=== PATIENT | female | born 1940 | race Caucasian/White ===

== ENCOUNTER 2018-06-14 10:25 | Emergency (ER) | payer MEDICARE ==
[2018-06-14] MEDS ORDERED: IOHEXOL 350 MG/ML 100ML INFUS..BTL IV ONE (11:17)
[2018-06-14] MEDS ORDERED: SODIUM CHLORIDE 0.9% 1000ML 1,000 ML IV ONE (11:47)
[2018-06-14 12:27] LABS: BASOPHILS % (AUTO) 0.4 % (0.0-5.0); EOSINOPHILS % (AUTO) 1.1 % (0.0-8.0); HEMATOCRIT 35.1 % (36-48); LYMPHOCYTES % (AUTO) 12.4 % (21.0-51.0); MEAN CORPUSCULAR HEMOGLOBIN 30.6 pg (27.0-33.0); MEAN CORPUSCULAR VOLUME 92.6 fL (79-99); MONOCYTES % (AUTO) 9.1 % (3.0-13.0); PLATELET COUNT (AUTO) 173 K/uL (130-400); RED BLOOD CELL COUNT(AUTO) 3.79 MIL/uL (4.00-5.50); RED CELL DISTRIBUTION WIDTH 14.7 % (11.0-15.5); WHITE BLOOD COUNT (AUTO) 9.8 K/uL (4.8-10.8)
[2018-06-14 13:00] LABS: ALBUMIN 2.9 g/dL (3.5-5.0); BILIRUBIN,TOTAL 0.7 mg/dL (0.2-1.0); POTASSIUM 4.6 mmol/L (3.5-5.1); TOTAL PROTEIN, SERUM 6.4 g/dL (6.0-8.3)
[2018-06-14] MEDS ORDERED: CEFTRIAXONE SODIUM 1 GM ONE (14:24)
== END 2018-06-14 15:05 | disposition home or self-care (01) ==
LOC: EDH 10:25
DX: L03.312 Cellulitis of back [any part except buttock and flank] (principal); I10 Essential (primary) hypertension; E78.5 Hyperlipidemia, unspecified; E11.9 Type 2 diabetes mellitus without complications; Z88.8 Allergy status to other drugs, medicaments and biological substances; Z98.890 Other specified postprocedural states
CPT/HCPCS: 36415; 72193; 80053; 85025; 96374; 99285; J0696; J7030; Q9967

== ENCOUNTER → 2023-01-14 | Outpatient (CLI) | payer MEDICARE ==
[~2023-01-14] MED LIST: REGADENOSON 0.4 MG/5 ML PF SYG IVP ONE; REGADENOSON 0.4 MG/5 ML PF SYG IVP SCH
== END | disposition home or self-care (01) ==
LOC: SHCH 08:26
PROVIDERS: ATTEND Internal Medicine
DX: R94.39 Abnormal result of other cardiovascular function study (principal); R94.31 Abnormal electrocardiogram [ECG] [EKG]
CPT/HCPCS: 78452; 96374; 93017; J2785; A9500 ×2

== ENCOUNTER → 2023-01-28 | Outpatient (CLI) | payer MEDICARE | END | disposition home or self-care (01) | LOC: SHCH 09:32 | PROVIDERS: ATTEND Internal Medicine | DX: I34.81 Nonrheumatic mitral (valve) annulus calcification (principal); R94.31 Abnormal electrocardiogram [ECG] [EKG]; I10 Essential (primary) hypertension; E11.9 Type 2 diabetes mellitus without complications; E78.5 Hyperlipidemia, unspecified | CPT/HCPCS: 93306 ==

== ENCOUNTER → 2023-03-01 | Outpatient (CLI) | payer MEDICARE | END | disposition home or self-care (01) | LOC: SHCH 13:40 | PROVIDERS: ATTEND Internal Medicine | DX: I65.23 Occlusion and stenosis of bilateral carotid arteries (principal); R09.89 Other specified symptoms and signs involving the circulatory and respiratory systems | CPT/HCPCS: 93880 ==

== ENCOUNTER 2024-02-14 10:41 | Emergency (ER) | payer MEDICARE ==
[~2024-02-14] VITALS: Ht 149.9 cm; Wt 81.6 kg
[2024-02-14 11:40] LABS: APPEARANCE,URINE CLEAR (CLEAR); BILIRUBIN,URINE NEGATIVE (NEGATIVE); COLOR,URINE LIGHT-YELLOW (YELLOW); GLUCOSE, URINE (UA) NEGATIVE (NEGATIVE); KETONES,URINE NEGATIVE (NEGATIVE); LEUKOCYTE ESTERASE ,URINE 75 Leu/uL (NEGATIVE); NITRATE,URINE NEGATIVE (NEGATIVE); OCCULT BLOOD,URINE NEGATIVE (NEGATIVE); PROTEIN,URINE NEGATIVE (NEGATIVE); UROBILINOGEN,URINE 0.2 mg/dL (0.2-1.0)
[2024-02-14 11:43] LABS: ADD UA MICROSCOPIC YES
[2024-02-14 11:52] LABS: BACTERIA,URINE RARE /HPF (None Seen); MUCUS,URINE RARE LPF (None Seen); RBC,URINE 0-1 /HPF (0-1); SQUAMOUS EPITHELIAL CELL,UR RARE /HPF (0-2)
[2024-02-14] MEDS ORDERED: CEPH500T PO (11:58)
[2024-02-14] MEDS ORDERED: CYCL5TAB PO (11:58)
[2024-02-14 12:09] LABS: BASOPHILS # (AUTO) 0.05 K/uL (0.00-0.20); BASOPHILS % (AUTO) 0.9 % (0.0-5.0); EOSINOPHILS # (AUTO) 0.24 K/uL (0.00-0.70); EOSINOPHILS % (AUTO) 4.2 % (0.0-8.0); HEMATOCRIT 28.6 % (36-48); IMMATURE GRANULOCYTE ABSOLUTE 0.02 K/uL (0-1); LYMPHOCYTES # (AUTO) 1.8 K/uL (1.0-4.8); LYMPHOCYTES % (AUTO) 30.6 % (21.0-51.0); MEAN CORPUSCULAR HGB CONC 31.8 g/dL (32.0-36.0); MEAN CORPUSCULAR VOLUME 91.1 fL (79-99); MONOCYTES # (AUTO) 0.4 K/uL (0.1-1.0); MONOCYTES % (AUTO) 6.8 % (3.0-13.0); NEUTROPHILS # (AUTO) 3.3 K/uL (1.8-7.7); NEUTROPHILS % (AUTO) 57.1 % (40.0-77.0); PLATELET COUNT (AUTO) 192 K/uL (130-400); RED BLOOD CELL COUNT(AUTO) 3.14 MIL/uL (4.00-5.50); RED CELL DISTRIBUTION WIDTH 17.1 % (11.0-15.5); WHITE BLOOD COUNT (AUTO) 5.7 K/uL (4.8-10.8)
[2024-02-14] MEDS: CEFTRIAXONE 1G VIAL IVPB ONE (12:10)
[2024-02-14] MEDS: HYDROCODONE/ACETAMINOPHEN 5/325 MG TAB PO ONE (12:10)
[2024-02-14 12:21] LABS: CREATININE 1.3 mg/dL (0.5-1.0); POTASSIUM 5.1 mmol/L (3.5-5.1)
[2024-02-14 13:06] VITALS: BP 126/60; PULSE 68; RESP 18; O2SAT 98
== END 2024-02-14 13:07 | disposition home or self-care (01) ==
LOC: EDH 10:41
DX: N39.0 Urinary tract infection, site not specified (principal); G89.29 Other chronic pain; M54.9 Dorsalgia, unspecified; M62.838 Other muscle spasm; E11.9 Type 2 diabetes mellitus without complications; I10 Essential (primary) hypertension
CPT/HCPCS: 99283; 96374; 80048; 85025; 87088; 81001; 36415; J0696

== ENCOUNTER → 2024-03-15 | Outpatient (CLI) | payer MEDICARE ==
[~2024-03-15] MED LIST changes: +CEPH500T PO; +CYCL5TAB PO; -REGADENOSON 0.4 MG/5 ML PF SYG IVP ONE; -REGADENOSON 0.4 MG/5 ML PF SYG IVP SCH
== END | disposition home or self-care (01) ==
LOC: RAH 12:38
PROVIDERS: ATTEND Family Medicine
DX: R33.9 Retention of urine, unspecified (principal); E11.22 Type 2 diabetes mellitus with diabetic chronic kidney disease
CPT/HCPCS: 76857

== ENCOUNTER 2025-04-11 11:22 | Inpatient (IN) | payer MEDICARE ==
[~2025-04-11] VITALS: Ht 157.5 cm; Wt 83.3 kg
[~2025-04-11 11:22] MED LIST changes: -CYCL5TAB PO; +CYCL5TAB3 PO
[2025-04-11 12:16] LABS: APPEARANCE,URINE CLOUDY (CLEAR); GLUCOSE, URINE (UA) NEGATIVE (NEGATIVE); LEUKOCYTE ESTERASE ,URINE 500 Leu/uL (NEGATIVE); NITRATE,URINE NEGATIVE (NEGATIVE); OCCULT BLOOD,URINE NEGATIVE (NEGATIVE)
[2025-04-11 12:32] LABS: IMMATURE GRANULOCYTE ABSOLUTE 0.01 K/uL (0-1); NUCLEATED RED BLOOD CELLS 0.0 % (0.0-0.19); PLATELET COUNT (AUTO) 272 K/uL (130-400); RED BLOOD CELL COUNT(AUTO) 3.33 MIL/uL (4.00-5.50); RED CELL DISTRIBUTION WIDTH 15.7 % (11.0-15.5); WHITE BLOOD COUNT (AUTO) 6.2 K/uL (4.8-10.8)
[2025-04-11 12:36] LABS: NON-SQUAMOUS EPITHELIAL CELL 1 /HPF (0-2); SQUAMOUS EPITHELIAL CELL,UR MOD /HPF (0-2)
[2025-04-11 12:38] LABS: CREATININE 1.7 mg/dL (0.5-1.0); GLOMERULAR FILTR. RATE CALC 29.0 mL/min (>90); GLUCOSE,RANDOM 187.0 mg/dL (70-105); SODIUM SERUM 137.0 mmol/L (136-145); UREA NITROGEN, BLOOD 25.0 mg/dL (7-18)
[2025-04-11] MEDS ORDERED: PHARMACY COMMUNICATION MISC SCH (13:30)
[2025-04-11] MEDS: 0.9% NACL 500ML IV.SOLN 500 ML IV ONE (13:42)
--- NOTE | 2025-04-11 13:44 | HMCIMG ---
EXAM: CT Abdomen and Pelvis without Intravenous Contrast CLINICAL HISTORY: 84-year-old female with right flank pain TECHNIQUE: Axial computed tomography images of the abdomen and pelvis without intravenous contrast. Dose reduction technique was used including one or more of the following: automated exposure control, adjustment of mA and kV according to patient size, and/or iterative reconstruction. CONTRAST: None. COMPARISON: 06/14/2018 FINDINGS: LUNG BASES: Atelectasis. Tiny pulmonary micronodules, question inflammatory or infectious nodules. LIVER: Unremarkable. GALLBLADDER AND BILE DUCTS: Status post cholecystectomy with surgical clips. No ductal dilation. PANCREAS: Unremarkable. SPLEEN: Multiple splenic calcifications. ADRENAL GLANDS: Unremarkable. KIDNEYS, URETERS, AND BLADDER: Unremarkable. No hydronephrosis or nephrolithiasis. No ureteral or bladder calculi. Nonspecific bilateral perinephric fat stranding. STOMACH AND BOWEL: No obstruction. No wall thickening. No CT evidence of colitis. Left colon and sigmoid colon diverticulosis without diverticulitis. APPENDIX: Normal. PERITONEUM: No free fluid. No free air. LYMPH NODES: No lymphadenopathy. REPRODUCTIVE: Unremarkable as visualized. VASCULATURE: Atherosclerotic aortic and coronary arteries. Atherosclerotic aortoiliac bifurcation. No aortic aneurysm. ABDOMINAL WALL AND SOFT TISSUES: Anterior abdominal wall hernia containing mesenteric fat and some loops of small bowel without evidence of bowel obstruction. BONES: Fixation hardware in the lower lumbar spine. Ywqudhpr-[id number]-cbyarl degenerative changes in the lumbar spine. No fracture or suspicious osseous abnormality. IMPRESSION: 1. No acute intra-abdominal or pelvic abnormality related to right flank pain. 2. Anterior abdominal wall hernia containing mesenteric fat and some loops of small bowel without evidence of bowel obstruction. /[place]
--- NOTE | 2025-04-11 15:00 | ERN ---
General Chief Complaint: Flank Pain Stated Complaint: RT FLANK PAIN, UTI Time Seen by MD: 11:28 Time Seen by Midlevel: 11:28 Source: patient History of Present Illness Initial Comments 84-year-old female who presents to the emergency department due to right flank pain onset one week. Patient reports she was previously seen by PCP one week ago and had a negative UA. Urine was sent for culture and results from [facility] abnormal. Patient denies any hematuria, fevers, vomiting or further associated symptoms. PMHx anemia, cancer, DM, HTN, TIA, UTIs Allergies: Coded Allergies: No Allergy Information Available (Verified Allergy, Unknown, 01/13/23) baclofen (Unverified Allergy, Unknown, 04/11/25) ceftazidime (Unverified Allergy, Unknown, 04/11/25) colchicine (Unverified Allergy, Unknown, 04/11/25) gabapentin (Unverified Allergy, Unknown, 04/11/25) hydromorphone (Unverified Allergy, Unknown, 04/11/25) levofloxacin (Unverified Allergy, Unknown, 04/11/25) naproxen (Unverified Allergy, Unknown, 04/11/25) tetracycline (Unverified Allergy, Unknown, 04/11/25) Home Meds Active Scripts Cyclobenzaprine HCl (Cyclobenzaprine HCl) 5 Mg Tablet, 5 MG PO [id number] for back spasm/pain, #10 TAB 0 Refills Prov:AMANDA [employer] 02/14/24 Cephalexin (Cephalexin) 500 Mg Tablet, 500 MG PO BID for 7 Days, #14 TAB 0 Refills Prov:AMANDA [employer] 02/14/24 Past Medical History Past Medical History: Anemia, Cancer, Diabetes-Type II, Hypertension, TIA, UTI Medical History Other: SKIN CA Past Surgical History: Other Surgical History Other: BACK SX Social History Social History: Lives with family Female( History) History: Not Applicable ROS Dictation Constitutional: Negative for fever,chills, and weight loss Eyes: Negative for injury, pain,redness, and discharge ENT: Negative for injury,pain or swelling Cardiovascular: Negative for chest pain, palpitations, and edema Respiratory: Negative for shortness of breath, cough, and wheezing, Abdomen/GI: Positive for right flank pain Negative for nausea, vomiting, diarrhea, and constipation Back: Negative for injury and pain : Negative for painful urination, bleeding or discharge MS/Extremity: Negative for injury and deformity Skin: Negative for rash, and discoloration Neuro: Negative for headache, weakness, numbness, tingling, and seizure Psych: Negative for suicide ideation, homicidal ideation, and hallucinations Physical Exam Physical Exam Dictation General: awake, alert, no acute distress Head/Face: Normocephalic, atraumatic Eyes: PERRL, EOMI, normal conjunctiva ENT: oral cavity clear, oral mucosa moist Neck: Supple, normal range of motion Cardiovascular: RRR, normal S1/S2 Respiratory: CTAB, no respiratory distress Abdomen: Soft, non-tender, non-distended, no guarding or rebound. Skin: Warm, dry, normal turgor, no rash MS/Extremity: Pulses equal, no cyanosis, neurovascular intact, FROM Neuro: COAx4, GCS 15, strength 5/5, CN 2-12 intact, normal cerebellar exam, normal gait Psych: Normal behavior, mood, and affect normal Results Laboratory and Microbiology Lab and Micro Result Laboratory Tests Test 04/11/25 11:59 04/11/25 12:20 Urine Color LIGHT-YELLOW (YELLOW) Urine Appearance CLOUDY (CLEAR) H Urine pH 5.5 (5.0-8.0) Urine Specific [place] 1.007 (1.001-1.031) Urine Protein NEGATIVE mg/dL (NEGATIVE) Urine Glucose (UA) NEGATIVE mg/dL (NEGATIVE) Urine Ketones NEGATIVE mg/dL (NEGATIVE) Urine Occult Blood NEGATIVE (NEGATIVE) Urine Nitrate NEGATIVE (NEGATIVE) Urine Bilirubin NEGATIVE mg/dL (NEGATIVE) Urine Urobilinogen 0.2 mg/dL (0.2-1.0) Urine Leukocyte Esterase 500 Isac/uL (NEGATIVE) H Urine RBC 2-5 /HPF (0-1) H Urine WBC 6-10 /HPF (0-1) H Urine Squamous Epithelial Cells MOD /HPF (0-2) Urine Non-Squamous Epithelial Cells 1 /HPF (0-2) Urine Bacteria RARE /HPF (None Seen) White Blood Count 6.2 K/uL (4.8-10.8) Red Blood Count 3.33 MIL/uL (4.00-5.50) L Hemoglobin 8.5 g/dL (12.0-16.0) L Hematocrit 28.9 % (36-48) L Mean Corpuscular Volume 86.8 fL (79-99) Mean Corpuscular Hemoglobin 25.5 pg (27.0-33.0) L Mean Corpuscular Hemoglobin Concent 29.4 g/dL (32.0-36.0) L Red Cell Distribution Width 15.7 % (11.0-15.5) H Platelet Count 272 K/uL (130-400) Mean Platelet Volume 9.4 fL (7.5-10.5) Immature Granulocyte % (Auto) 0.2 % (0-1) Neutrophils (%) (Auto) 53.9 % (40.0-77.0) Lymphocytes (%) (Auto) 32.7 % (21.0-51.0) Monocytes (%) (Auto) 7.8 % (3.0-13.0) Eosinophils (%) (Auto) 4.1 % (0.0-8.0) Basophils (%) (Auto) 1.3 % (0.0-5.0) Neutrophils # (Auto) 3.3 K/uL (1.8-7.7) Lymphocytes # (Auto) 2.0 K/uL (1.0-4.8) Monocytes # (Auto) 0.5 K/uL (0.1-1.0) Eosinophils # (Auto) 0.25 K/uL (0.00-0.70) Basophils # (Auto) 0.08 K/uL (0.00-0.20) Absolute Immature Granulocyte (auto 0.01 K/uL (0-1) Nucleated Red Blood Cells 0.0 % (0.0-0.19) Red Blood Cell Morphology See comments Sodium Level 137 mmol/L (136-145) Potassium Level 4.4 mmol/L (3.5-5.1) Chloride Level 101 mmol/L (101-111) Carbon Dioxide Level 27 mmol/L (21-32) Blood Urea Nitrogen 25 mg/dL (7-18) H Creatinine 1.7 mg/dL (0.5-1.0) H Glomerular Filtration Rate Calc 29 mL/min (>90) Random Glucose 187 mg/dL (70-105) H Total Calcium 9.1 mg/dL (8.5-10.1) Labs Reviewed?: Yes EKG/XRAY/US/CT/MRI CT Scan Comment DICTATED BY: HOSSEIN OSPINA MD DATE: 04/11/25 1507 ELECTRONICALLY SIGNED BY: DATE: EXAM: CT Abdomen and Pelvis without Intravenous Contrast CLINICAL HISTORY: 84-year-old female with right flank pain TECHNIQUE: Axial computed tomography images of the abdomen and pelvis without intravenous contrast. Dose reduction technique was used including one or more of the following: automated exposure control, adjustment of mA and kV according to patient size, and/or iterative reconstruction. CONTRAST: None. COMPARISON: 06/14/2018 FINDINGS: LUNG BASES: Atelectasis. Tiny pulmonary micronodules, question inflammatory or infectious nodules. LIVER: Unremarkable. GALLBLADDER AND BILE DUCTS: Status post cholecystectomy with surgical clips. No ductal dilation. PANCREAS: Unremarkable. SPLEEN: Multiple splenic calcifications. ADRENAL GLANDS: Unremarkable. KIDNEYS, URETERS, AND BLADDER: Unremarkable. No hydronephrosis or nephrolithiasis. No ureteral or bladder calculi. Nonspecific bilateral perinephric fat stranding. STOMACH AND BOWEL: No obstruction. No wall thickening. No CT evidence of colitis. Left colon and sigmoid colon diverticulosis without diverticulitis. APPENDIX: Normal. PERITONEUM: No free fluid. No free air. LYMPH NODES: No lymphadenopathy. REPRODUCTIVE: Unremarkable as visualized. VASCULATURE: Atherosclerotic aortic and coronary arteries. Atherosclerotic aortoiliac bifurcation. No aortic aneurysm. ABDOMINAL WALL AND SOFT TISSUES: Anterior abdominal wall hernia containing mesenteric fat and some loops of small bowel without evidence of bowel obstruction. BONES: Fixation hardware in the lower lumbar spine. [id number] degenerative changes in the lumbar spine. No fracture or suspicious osseous abnormality. IMPRESSION: 1. No acute intra-abdominal or pelvic abnormality related to right flank pain. 2. Anterior abdominal wall hernia containing mesenteric fat and some loops of small bowel without evidence of bowel obstruction. /[place] DICTATED BY: HOSSEIN OSPINA MD DATE: 04/11/25 1443 [facility] MDM: Differential diagnosis: UTI, pyelonephritis, nephrolithiasis Rationale: 84-year-old female who presents to the emergency department due to right flank pain onset one week. Patient reports she was previously seen by PCP one week ago and had a negative UA. Urine was sent for culture and results from [facility] abnormal. Patient denies any hematuria, fevers, vomiting or further associated symptoms. PMHx anemia, cancer, DM, HTN, TIA, UTIs Per physical examination patient is in no acute distress, abdomen is soft nontender. Labs obtained indicating anemia with hemoglobin of 8.5. Chemistry shows creatinine of 1.7 and BUN 25 consistent with WILFREDO compared to previous labs. UA shows a urinary tract infection with 500 leukocyte esterase and 6-[address] abdomen and pelvis obtained showing no intra or acute abdominal or pelvic abnormalities, anterior abdominal wall hernia containing mesenteric fat and some small bowel without evidence of bowel obstruction. Patient was only administered 500 mL of IV fluids due to fluid retention and morphine in the ED. Consulted pharmacy for possible antibiotic due to patient's multiple allergies. Patient was educated on findings, diagnosis, decision for admission. Patient verbalized understanding and agrees with admission. Case discussed with [facility] who accepted admission. Previous outside records reviewed: Old ER visits. Risk of complication and/or morbidity or mortality of patient management: None Medications-Per medication reconciliation Need for hospitalization: Patient does meet criteria for hospitalization. Need for emergency major/minor surgery: No There are no social concerns with this patient. Prescription drug management Prescriptions will include symptomatic care Patient's prior external medical records from other ER visits were reviewed by me as indicated. Prior testing and results from previous visits were reviewed. Prior tests were taken into account with medical decision making and resource u tilization, independent historian/historians were used to obtain complete medical history. I independently interpreted the test that were performed, results were reviewed by me and considered findings on radiology if ordered. Medical management and examination interpretation discussions were had by me with other qualified healthcare professionals as indicated for the patient's ca re. ED Course Orders Procedure Category Date Status Time Cbc With Differential LAB 04/11/25 Complete 12:07 Basic Metabolic Panel LAB 04/11/25 Complete 12:07 Urinalysis LAB 04/11/25 Complete W/Microscopic 12:07 Ct Abdomen/Pelvis W/O CT 04/11/25 Resulted Contrast 12:07 Culture Urine CAROL 04/11/25 In Process 12:18 0.9% Nacl 500ml PHA 04/11/25 Complete Iv.Soln (Ns 500ml 13:30 Pharmacy PHA 04/11/25 Complete Communication 13:30 Morphine 2mg Syg PHA 04/11/25 Logged (Morphine 2mg Syg) 14:30 Vital Signs(Adult CPOE 04/11/25 Transmitted Hospitalist) 14:37 Nurse To Enter Home CPOE 04/11/25 Transmitted Medication 14:37 Admit Orders ADM 04/11/25 Transmitted 14:37 Current Medications Medications (Trade) Dose Ordered Sig/Ramirez Route PRN Reason Start Time Stop Time Status Last Admin Dose Admin Morphine Sulfate (morPHINE 2MG SYG) 2 mg ONCE ONCE IVP 04/11/25 14:30 04/11/25 14:31 UNV Pharmacy Profile Note (Pharmacy Communication) 1 each ONCE MISC 04/11/25 13:30 04/11/25 13:40 DC Sodium Chloride 500 ml @ 0 mls/hr ONCE ONCE IV 04/11/25 13:30 04/11/25 13:31 DC 04/11/25 13:42 Vital Signs Date Time Temp Pulse Resp B/P (MAP) Pulse Ox O2 Delivery O2 Flow Rate FiO2 04/11/25 13:27 97.0 62 18 152/55 98 Room Air* 0 21 04/11/25 11:25 97.9 77 16 168/83 98 Room Air* 0 21 04/11/25 11:25 97.9 77 16 168/63 98 Room Air 0 Critical Care Note Critical Time: 30 minutes Comments Total critical care time was 33 minutes. Excluding time for procedures. Management of critically ill patient with concern for acute decompensation. Management included interpretation of laboratory values and imaging, hemodynamics, time for consultation with consultants and admitting physician. DX & DISP Disposition: Inpatient Decision to Admit Date: Apr 11, 2025 Departure Impression: Primary Impression: UTI (urinary tract infection) Additional Impressions: WILFREDO (acute kidney injury), Anemia Condition: Stable Referrals: ABBE GRULLON MD (PCP) I performed the substantive portion of the visit. I have reviewed and personally made and approve the management plan that is documented in the notes by myself or the SARABJIT. I acknowledge full responsibility for the patient's management plan. GATO HERNANDEZ Apr 11, 2025 15:00
[2025-04-11 15:50] VITALS: BP 160/75; PULSE 65; RESP 18; TEMP 97.6
[2025-04-11 16:00] VITALS: O2SAT 99
--- NOTE | 2025-04-11 16:35 | NUR ---
DCP: HOME Pt currently lives with sps in their own home. Pt does not report insecurities with food, fci, and/or utilities. Pt does have a walker that she uses to ambulate. Pt does not have DME, home health, or provider services. PCP is Dr. Shyla Sandoval and uses [facility] for any RX needs. At [place] pt will return home and family can assist with transportation. Addendum: 04/11/25 at 1637 by MORGAN DAVENPORT SS Amended: Links added.
[2025-04-11] MEDS ORDERED: ARTIFICAL TEARS SOL 15 ML OP PRN (17:30)
[2025-04-11] MEDS ORDERED: LACTULOSE 20 GM/30 ML UDCUP PO PRN (17:30)
[2025-04-11] MEDS ORDERED: LOPERAMIDE HCL 2 MG CAP PO PRN (17:30)
[2025-04-11] MEDS ORDERED: NITROGLYCERIN 0.4 MG SL TAB SL PRN (17:30)
[2025-04-11] MEDS ORDERED: BENZOCAINE/MENTH/CETYLPYRD CL 1 EACH LOZENGE MM PRN (17:30)
[2025-04-11 20:00] VITALS: BP 121/65; PULSE 59; RESP 18; TEMP 98
[2025-04-11] MEDS: FAMOTIDINE 20MG VIAL IV SCH (21:31)
--- NOTE | 2025-04-11 22:18 | HP ---
[facility] HISTORY & PHYSICAL Date Patient Seen: Apr 11, 2025 Time of Visit: 22:18 Supervising Physician: Dr. Mcgrath Primary Care Physician: ABBE GRULLON MD (PCP) Outpatient Specialists: Inpatient Consults: nephrology PROBLEM LIST: Acute complicated cystitis, POA, + for beta hemolytic streptococcus, group B, per outpatient urine culture on 04/07/25 Acute kidney injury, GFR 29 Acute on chronic kidney disease, GFR 41on 02/14/2024 Anemia chronic disease Diabetes mellitus with hyperglycemia Uncontrolled hypertension History of Skin cancer to upper head History of TIA HPI: Mrs. Haywood is an 84-year-old female who presented to [facility] ED for evaluation of right flank pain onset one week. She reports that she was previously seen by PCP and urine one send off on 04/07/2025. She states the PCP reported the urine and urine cultures were negative but she continued with back discomfort which she associated with a urinary tract infection. She reports that she saw her urine from [facility] which read abnormal. The patient has the [facility] urine results/ findings which state "beta hemolytic streptococcus, group B. Penicillin and ampicillin are drug of choice for treatment". Labs were reviewed. Patient has a GFR of 29, BUN 25, creatinine 1.7, glucose 187, hemoglobin 8.5, hematocrit 28.9, RBC 3.3. UA is positive for leuk EST. CT abdomen and pelvis without contrast: 1. No acute intra-abdominal or pelvic abnormality related to right flank pain. 2. Anterior abdominal wall hernia containing mesenteric fat and some loops of small bowel without evidence of bowel obstruction. ED provider request patient be admitted with the diagnosis of UTI, WILFREDO, and anemia. I assessed the patient at bedside in 420. The patient appeared comfortable, breathing was even, unlabored, in no distress, and was conversive. I informed her of labs, diagnostics, and plan of care. She verbalized understanding and is in agreement with the plan. Plan and assessment are listed below. PAST MEDICAL HX: see above PAST SURGICAL HX: Back surgery, surgical removal of squamous cells from upper head SOCIAL HISTORY: No tobacco, ETOH, or illicit drug use Coded Allergies: No Allergy Information Available (Verified Allergy, Unknown, 01/13/23) baclofen (Unverified Allergy, Unknown, 04/11/25) ceftazidime (Unverified Allergy, Unknown, 04/11/25) colchicine (Unverified Allergy, Unknown, 04/11/25) gabapentin (Unverified Allergy, Unknown, 04/11/25) hydromorphone (Unverified Allergy, Unknown, 04/11/25) levofloxacin (Unverified Allergy, Unknown, 04/11/25) naproxen (Unverified Allergy, Unknown, 04/11/25) tetracycline (Unverified Allergy, Unknown, 04/11/25) REVIEW OF SYSTEMS: 12 point ROS reviewed with patient. Pertinent positives mentioned above. Otherwise negative. PHYSICAL EXAM: GENERAL: Alert, awake oriented x 3 HEENT: EOMI, Sclera non icteric, moist mucosa NECK: Supple, no JVD, trachea midline LUNGS: Clear breath sounds bilaterally. No wheezes HEART: Regular rate and rhythm. Normal S1 and S2, without murmurs ABD: Abdomen soft, nontender. Bowel sounds present EXT: No clubbing cyanosis or edema NEURO: Alert and oriented X3, follows commands Vital Signs (last 8hr) Date Time Temp Pulse Resp B/P (MAP) Pulse Ox O2 Delivery O2 Flow Rate FiO2 04/11/25 20:00 98.1 59 18 121/65 96 Room Air 21 04/11/25 16:00 99 Room Air* 0 21 04/11/25 15:50 97.5 65 18 160/75 98 Room Air 04/11/25 15:40 97.7 63 16 157/70 97 Room Air* 0 21 LABS: Hematology Labs: Test 04/11/25 12:20 Range/Units White Blood Count 6.2 4.8-10.8 K/uL Red Blood Count 3.33 L 4.00-5.50 MIL/uL Hemoglobin 8.5 L 12.0-16.0 g/dL Hematocrit 28.9 L 36-48 % Mean Corpuscular Volume 86.8 79-99 fL Mean Corpuscular Hemoglobin 25.5 L 27.0-33.0 pg Mean Corpuscular Hemoglobin Concent 29.4 L 32.0-36.0 g/dL Red Cell Distribution Width 15.7 H 11.0-15.5 % Platelet Count 272 130-400 K/uL Mean Platelet Volume 9.4 7.5-10.5 fL Immature Granulocyte % (Auto) 0.2 0-1 % Neutrophils (%) (Auto) 53.9 40.0-77.0 % Lymphocytes (%) (Auto) 32.7 21.0-51.0 % Monocytes (%) (Auto) 7.8 3.0-13.0 % Eosinophils (%) (Auto) 4.1 0.0-8.0 % Basophils (%) (Auto) 1.3 0.0-5.0 % Neutrophils # (Auto) 3.3 1.8-7.7 K/uL Lymphocytes # (Auto) 2.0 1.0-4.8 K/uL Monocytes # (Auto) 0.5 0.1-1.0 K/uL Eosinophils # (Auto) 0.25 0.00-0.70 K/uL Basophils # (Auto) 0.08 0.00-0.20 K/uL Absolute Immature Granulocyte (auto 0.01 0-1 K/uL Nucleated Red Blood Cells 0.0 0.0-0.19 % Red Blood Cell Morphology See comments Chemistry Labs: Test 04/11/25 12:20 Range/Units Sodium Level 137 136-145 mmol/L Potassium Level 4.4 3.5-5.1 mmol/L Chloride Level 101 101-111 mmol/L Carbon Dioxide Level 27 21-32 mmol/L Blood Urea Nitrogen 25 H 7-18 mg/dL Creatinine 1.7 H 0.5-1.0 mg/dL Glomerular Filtration Rate Calc 29 >90 mL/min Random Glucose 187 H 70-105 mg/dL Total Calcium 9.1 8.5-10.1 mg/dL DIAGNOSTICS / RADIOLOGY RESULTS: [ ] PLAN -Admit to medical floor. -Start Zosyn 3.375 IV q.8 hours per outpatient urine culture results. (Rocephin2 g IV given on arrival) -NS 75 mL/hour overnight, and discontinue at 7:00 a.m.. -Follow urine cultures. -Consult Nephrology for acute on chronic kidney injury. -Obtain renal sonogram. -Reconciled home medication: Hydrocodone/acetaminophen. -PRN medications for: Pain management, fever, hypertension, N/V, constipation. -Glucometer checks AC & HS needed with insulin regular sliding scale coverage as needed. -Blood pressure checks every 4 hours and as needed. -Reconcile home medications once available. - Monitor renal and liver function. -Monitor electrolytes and treat accordingly PRN -AM labs. -GI and DVT prophylaxis -Further plan/orders per hospitalization course. NEURO: Minimize central acting medications as possible. Maintain fall precautions, adequate lighting during the day PULMONARY: Supplemental 02 as needed. Maintain aspiration precautions at all times CARDIOVASCULAR: Follow hemodynamics. Vital signs per facility protocol GI & NUTRITION: Continue with nutritional support. Continue stool softeners and laxatives as needed. KIDNEYS & ELECTROLYTES: Strict monitoring of intake, output and overall fluid balance. Avoid nephrotoxic medications to the extent possible. Medications to be dosed according to renal function. Monitor electrolytes and replace as needed ENDOCRINE: Maintain blood glucose between 100-180 at all times. Hypoglycemia protocol in place INFECTIOUS DISEASE: Trend temperature, WBC and procalcitonin level Follow cultures, deescalate antibiotics as soon as possible. Panculture if new onset fever ONCOLOGY/HEMATOLOGY/COAGULATION: Monitor for s/s of bleeding Monitor hemoglobin, coagulation studies as needed SKIN: Pressure ulcer prevention per facility protocol Specialty mattress ORTHO/REHAB: Continue PT/OT Prophylaxis: Continue GI and DVT prophylaxis Code Status: Full Resuscitation Disposition: ESMER ORELLANA Apr 11, 2025 22:18
[2025-04-11] MEDS: 0.9%NACL 1000ML 1,000 ML IV SCH (22:41)
[2025-04-11 23:30] VITALS: BP 150/74; PULSE 59; RESP 18; TEMP 97.8
[2025-04-12] VITALS (8 sets, daily range): BP systolic 108–170; BP diastolic 60–70; PULSE 55–67; RESP 18–20; TEMP 97.7–98.7; O2SAT 96
[2025-04-12] MEDS ORDERED: HYDR-4060 PO (00:50)
[2025-04-12] MEDS: HYDROcodone/APAP 5/325 1 TAB TABLET PO PRN (01:13)
[2025-04-12] MEDS ORDERED: 0.9%NACL 50ML IV SCH (04:00)
[2025-04-12] MEDS: ZOSYN 3.375GM +NS 50ML IVPB SCH (07:58)
[2025-04-12] MEDS ORDERED: ZOSYN 3.375GM +NS 50ML IV SCH (08:00)
--- NOTE | 2025-04-12 09:04 | NUR ---
WOUND CONCERN INFORMED LALI EDWARDS THAT PATIENT HAD SMALL ULCER TO RIGHT INNER THIGH DRAINING PURULENT DRAINAGE. PATIENT ALSO HAS SKIN GRAFT TO RIGHT THIGH. NO NEW ORDERS TO CONSULT WOUND CARE. WILL CONTINUE TO KEEP CLEAN/ MONITOR WOUNDS.
[2025-04-12 09:48] LABS: NUCLEATED RED BLOOD CELLS 0.0 % (0.0-0.19); PLATELET COUNT (AUTO) 259.0 K/uL (130-400); RED BLOOD CELL COUNT(AUTO) 3.17 MIL/uL (4.00-5.50); RED CELL DISTRIBUTION WIDTH 15.7 % (11.0-15.5); WHITE BLOOD COUNT (AUTO) 5.6 K/uL (4.8-10.8)
[2025-04-12 09:57] LABS: CREATININE 1.8 mg/dL (0.5-1.0); GLOMERULAR FILTR. RATE CALC 27.0 mL/min (>90); GLUCOSE,RANDOM 188.0 mg/dL (70-105); SODIUM SERUM 140.0 mmol/L (136-145); UREA NITROGEN, BLOOD 24.0 mg/dL (7-18)
[2025-04-12 12:04] LABS: % IRON SATURATION 10.0 % (22-44); IRON, SERUM 31.0 mcg/dL (50-170)
--- NOTE | 2025-04-12 13:17 | HMCIMG ---
EXAM: US Retroperitoneum Complete, Renal. CLINICAL HISTORY: 84-year-old female with acute kidney insufficiency. TECHNIQUE: Real-time ultrasound of the retroperitoneum (complete) with image documentation. COMPARISON: None provided. FINDINGS: RIGHT KIDNEY: Measures approximately 9.6 x 4.8 x 4.7 cm. Normal contour. No evidence of hydronephrosis or focal mass. Cortical echogenicity is within normal limits. Corticomedullary differentiation is preserved. LEFT KIDNEY: Measures approximately 9.1 x 4.8 x 4.0 cm. Limited visualization of the superior pole due to overlying bowel gas. No hydronephrosis seen in the visualized portion. Cortical echogenicity appears within normal limits. No visible masses. BLADDER: Wall measures approximately 4 mm. Not fully distended, limiting evaluation. No intraluminal masses or stones identified. Urinary bladder is underdistended; recommend repeat evaluation with better filling if clinically indicated. Kidneys are normal in size and shape for age, without sonographic evidence of obstruction. Limited view of the superior pole of the left kidney. Findings do not suggest hydronephrosis or acute obstruction. IMPRESSION: 1. No hydronephrosis or acute obstruction. 2. Limited visualization of the superior pole of the left kidney due to overlying bowel gas. 3. Underdistended urinary bladder; recommend repeat evaluation with better filling if clinically indicated. /[place]
--- NOTE | 2025-04-12 14:08 | PN ---
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 labs Dispo: Home INTERVAL HISTORY: Mrs. Haywood is an 84-year-old female who presented to [facility] [place] ED for evaluation of right flank pain onset one week. She reports that she was previously seen by PCP and urine one send off on 04/07/2025. She states the PCP reported the urine and urine cultures were negative but she continued with back discomfort which she associated with a urinary tract infection. She reports that she saw her urine from [facility] which read abnormal. The patient has the [facility] urine results/ findings which state "beta hemolytic streptococcus, group B. Penicillin and ampicillin are drug of choice for treatment". Labs were reviewed. Patient has a GFR of 29, BUN 25, creatinine 1.7, glucose 187, hemoglobin 8.5, hematocrit 28.9, RBC 3.3. UA is positive for leuk EST. CT abdomen and pelvis without contrast: 1. No acute intra-abdominal or pelvic abnormality related to right flank pain. 2. Anterior abdominal wall hernia containing mesenteric fat and some loops of small bowel without evidence of bowel obstruction. ED provider request patient be admitted with the diagnosis of UTI, WILFREDO, and anemia. assessed the patient at bedside in 420. The patient appeared comfortable, breathing was even, unlabored, in no distress, and was conversive. I informed her of labs, diagnostics, and plan of care. She verbalized understanding and is in agreement with the plan. 04/12 - patient is seen up in bed appears to be weak, deconditioned. Patient does not appear to be in any acute distress. Patient remains on room air denies chest discomfort, chest pain, or dyspnea with exertion. No acute changes reported overnight. Patient continues with renal dysfunction. We will continue IV fluids for now. Patient is found to have iron-deficiency anemia therefore we will replace with IV iron supplementation for now. We will continue current treatment plan for now. Vital signs are stable. Labs are within normal limits. We will plan to DC home in the next 24-48 hours. REVIEW OF SYSTEMS: 12 point ROS reviewed with patient. Pertinent positives mentioned above. Otherwise negative. PHYSICAL EXAM: GENERAL: Alert, awake oriented x 3 HEENT: EOMI, Sclera non icteric, moist mucosa NECK: Supple, no JVD, trachea midline LUNGS: Clear breath sounds bilaterally. No wheezes HEART: Regular rate and rhythm. Normal S1 and S2, without murmurs ABD: Abdomen soft, nontender. Bowel sounds present EXT: No clubbing cyanosis or edema NEURO: Alert and oriented X3, follows commands Vital Signs (last 8hr) Date Time Temp Pulse Resp B/P (MAP) Pulse Ox O2 Delivery O2 Flow Rate FiO2 04/12/25 12:00 98.6 67 20 148/66 99 Room Air 04/12/25 08:03 98.6 56 20 125/60 96 Room Air 04/12/25 08:00 96 Room Air* 0 21 04/12/25 07:52 98.6 56 20 125/60 96 Room Air LABS: Hematology Labs: Test 04/12/25 09:39 04/11/25 12:20 Range/Units White Blood Count 5.6 4.8-10.8 K/uL Red Blood Count 3.17 L 4.00-5.50 MIL/uL Hemoglobin 8.1 L 12.0-16.0 g/dL Hematocrit 27.3 L 36-48 % Mean Corpuscular Volume 86.1 79-99 fL Mean Corpuscular Hemoglobin 25.6 L 27.0-33.0 pg Mean Corpuscular Hemoglobin Concent 29.7 L 32.0-36.0 g/dL Red Cell Distribution Width 15.7 H 11.0-15.5 % Platelet Count 259 130-400 K/uL Mean Platelet Volume 9.6 7.5-10.5 fL Nucleated Red Blood Cells 0.0 0.0-0.19 % Immature Granulocyte % (Auto) 0.2 0-1 % Neutrophils (%) (Auto) 53.9 40.0-77.0 % Lymphocytes (%) (Auto) 32.7 21.0-51.0 % Monocytes (%) (Auto) 7.8 3.0-13.0 % Eosinophils (%) (Auto) 4.1 0.0-8.0 % Basophils (%) (Auto) 1.3 0.0-5.0 % Neutrophils # (Auto) 3.3 1.8-7.7 K/uL Lymphocytes # (Auto) 2.0 1.0-4.8 K/uL Monocytes # (Auto) 0.5 0.1-1.0 K/uL Eosinophils # (Auto) 0.25 0.00-0.70 K/uL Basophils # (Auto) 0.08 0.00-0.20 K/uL Absolute Immature Granulocyte (auto 0.01 0-1 K/uL Red Blood Cell Morphology See comments Chemistry Labs: Test 04/12/25 09:39 Range/Units Sodium Level 140 136-145 mmol/L Potassium Level 4.3 3.5-5.1 mmol/L Chloride Level 103 101-111 mmol/L Carbon Dioxide Level 26 21-32 mmol/L Blood Urea Nitrogen 24 H 7-18 mg/dL Creatinine 1.8 H 0.5-1.0 mg/dL Glomerular Filtration Rate Calc 27 >90 mL/min Random Glucose 188 H 70-105 mg/dL Total Calcium 8.7 8.5-10.1 mg/dL Iron Level 31 L 50-170 mcg/dL Total Iron Binding Capacity 309 250-450 mcg/dL Percent Iron Saturation 10.0 L 22-44 % DIAGNOSTICS / RADIOLOGY RESULTS: [ ] PLAN -Admit to medical floor. -Start Zosyn 3.375 IV q.8 hours per outpatient urine culture results. (Rocephin2 g IV given on arrival) -NS 75 mL/hour overnight, and discontinue at 7:00 a.m.. -Follow urine cultures. -Consult Nephrology for acute on chronic kidney injury. -Obtain renal sonogram. -Reconciled home medication: Hydrocodone/acetaminophen. -PRN medications for: Pain management, fever, hypertension, N/V, constipation. -Glucometer checks AC & HS needed with insulin regular sliding scale coverage as needed. -Blood pressure checks every 4 hours and as needed. -Reconcile home medications once available. - Monitor renal and liver function. -Monitor electrolytes and treat accordingly PRN -AM labs. -GI and DVT prophylaxis -Further plan/orders per hospitalization course. NEURO: Minimize central acting medications as possible. Maintain fall precautions, adequate lighting during the day PULMONARY: Supplemental 02 as needed. Maintain aspiration precautions at all times CARDIOVASCULAR: Follow hemodynamics. Vital signs per facility protocol GI & NUTRITION: Continue with nutritional support. Continue stool softeners and laxatives as needed. KIDNEYS & ELECTROLYTES: Strict monitoring of intake, output and overall fluid balance. Avoid nephrotoxic medications to the extent possible. Medications to be dosed according to renal function. Monitor electrolytes and replace as needed ENDOCRINE: Maintain blood glucose between 100-180 at all times. Hypoglycemia protocol in place INFECTIOUS DISEASE: Trend temperature, WBC and procalcitonin level Follow cultures, deescalate antibiotics as soon as possible. Panculture if new onset fever ONCOLOGY/HEMATOLOGY/COAGULATION: Monitor for s/s of bleeding Monitor hemoglobin, coagulation studies as needed SKIN: Pressure ulcer prevention per facility protocol Specialty mattress ORTHO/REHAB: Continue PT/OT Prophylaxis: Continue GI and DVT prophylaxis Code Status: Full Resuscitation Disposition: Home in 24-48 hours ATTESTATION BY PHYSICIAN I have seen and examined the patient. I reviewed the documentation, medical decision making, and treatment plan as noted by the mid-level provider above. I agree with the findings and plan of care. Denise Mcgrath MD,LALI N TONY Apr 12, 2025 14:08
[2025-04-12] MEDS: 0.9%NACL 1000ML 1,000 ML IV SCH (16:00)
[2025-04-12 20:08] LABS: APPEARANCE,URINE CLEAR (CLEAR); GLUCOSE, URINE (UA) NEGATIVE (NEGATIVE); LEUKOCYTE ESTERASE ,URINE NEGATIVE Leu/uL (NEGATIVE); NITRATE,URINE NEGATIVE (NEGATIVE); OCCULT BLOOD,URINE NEGATIVE (NEGATIVE)
[2025-04-12 20:09] LABS: ADD UA MICROSCOPIC NO
[2025-04-13 04:25] VITALS: BP 123/53; PULSE 58; RESP 17; TEMP 97.6
[2025-04-13 05:32] LABS: NUCLEATED RED BLOOD CELLS 0.0 % (0.0-0.19); PLATELET COUNT (AUTO) 257.0 K/uL (130-400); RED BLOOD CELL COUNT(AUTO) 3.04 MIL/uL (4.00-5.50); RED CELL DISTRIBUTION WIDTH 15.9 % (11.0-15.5); WHITE BLOOD COUNT (AUTO) 7.4 K/uL (4.8-10.8)
[2025-04-13 06:02] LABS: ASPARTATE AMINOTRANSFERASE 14.0 U/L (10-37); CREATININE 1.9 mg/dL (0.5-1.0); GLOMERULAR FILTR. RATE CALC 26.0 mL/min (>90); GLUCOSE,RANDOM 98.0 mg/dL (70-105); PHOSPHORUS 4.5 mg/dL (2.5-4.9); SODIUM SERUM 141.0 mmol/L (136-145); TOTAL PROTEIN, SERUM 6.0 g/dL (6.0-8.3); UREA NITROGEN, BLOOD 26.0 mg/dL (7-18)
--- NOTE | 2025-04-13 07:54 | CONS ---
NEPHROLOGY CONSULTATION REASON FOR CONSULTATION: Renal failure. HISTORY OF PRESENT ILLNESS: This patient is an 84-year-old who was admitted with right flank pain. The patient also has underlying back discomfort. The patient has abdominal hernia detected, found to have evaluated BUN and creatinine. The patient does have anemia. No other associated findings. No other aggravating or relieving factors. The patient has been possible UTI. All the other systemic review is unchanged. The patient is weak. The patient has known underlying diabetes, underlying hypertension, history of skin cancer, history of TIAs and the patient has Streptococcal in the urine culture. PAST MEDICAL HISTORY: Review of past medical history as above, diabetes, hypertension, skin cancer, TIA, anemia, and multiple others as above. PAST SURGICAL HISTORY: Back surgery and skin cancer removal. SOCIAL HISTORY: No smoking, alcohol, or drug abuse. ALLERGIES TO MEDICATIONS: SHE IS ALLERGIC TO BACLOFEN, CEFTAZIDIME, COLCHICINE, GABAPENTIN, HYDROMORPHONE, LEVAQUIN, NAPROXEN, TETRACYCLINE. FAMILY HISTORY: Unremarkable for present contacts. REVIEW OF SYSTEMS: CONSTITUTIONAL: Has been weak. No previous fever. No chills or rigor. HEENT: With no headache. No ulcer, sore throat, or difficulty swallowing. No new vision complaints. RESPIRATORY: With no cough, expectoration, hemoptysis, or pleuritic pain. CARDIOVASCULAR: No orthopnea or PND. GASTROINTESTINAL: Negative for nausea, vomiting or diarrhea. GENITOURINARY: Negative for dysuria or hematuria. DERMATOLOGIC: No rashes, pruritus, or skin lesion. ENDOCRINE: No polyuria, polydipsia, or polyphagia. PSYCHIATRIC: Negative for anxiety, depression, or hallucinations. NEUROLOGIC: No seizures or syncope. PHYSICAL EXAMINATION: GENERAL: Pale, no other distress. VITAL SIGNS: Blood pressure is 121/65, pulse 60, respiratory rate is 18, afebrile. HEENT: Head is atraumatic, normocephalic. Pupils are round and active. Sclerae are anicteric. Conjunctivae are not pale. Oral mucosa is not dry. NECK: Without masses or bruits. Neck has no bruits. CHEST: Shows equal thoracic percussion note being resonant in all areas. CARDIAC: Regular rhythm. No rub, no S3 or S4, no parasternal heave. ABDOMEN: No guarding, tenderness. Bowel sounds present. No free fluid. EXTREMITIES: No edema and no cyanosis or clubbing. BACK: No tenderness or back deformities. SKIN: No other petechiae rashes noted on inspection or palpation. LYMPHATIC: No lymph node swelling in neck or axillary area. LABORATORY DATA: Labs have been reviewed. Low hemoglobin 8.5, hematocrit is 28. The patient has a creatinine elevated up to 1.7, BUN of 25. Old records reviewed. The patient's urine culture is coming out positive for streptococcus. Microbiology data reviewed. IMAGING STUDIES: Personally reviewed. Renal ultrasound has shown this is a medical renal disease. No hydronephrosis. Nondistended bladder. Old records have been reviewed in detail, and I have reviewed and discussed with other team members. PROBLEMS: * Acute on chronic renal failure. * The patient has anemia. * Underlying diabetes. * The patient has underlying complicated UTI, underlying hypertension uncontrolled, history of skin cancer and TIA. RECOMMENDATIONS: Will be, * The patient has been admitted. * IV antibiotic and adjusted dose. * Gentle hydration. * The patient will get urine culture and urinalysis. * Urine electrolytes and osmolality. * One Nephro-Akshat daily. * Iron studies and ferritin. * Iron replacement as needed. * Monitor hemoglobin and hematocrit. * Monitor longitudinally kidney function. * Intake, output, weight to be monitored. * Please avoid contrast, nonsteroidal drug, and nephrotoxics. Medicine to be adjusted. Hypotension should be avoided and overall condition is critical and guarded. I have discussed with other team physician. Old records, previous records, imaging studies personally reviewed. Labs have been reviewed. Followup labs have been ordered. Overall, condition remained guarded. The patient was seen several times today. * IV Dilaudid 0.5 mg q.6 h. can be used for pain and I have discussed with the primary team and other team members. Thank you for this patient. TID: [id number] RECEIPT: [id number]
[2025-04-13 08:00] VITALS: BP 140/64; PULSE 66; RESP 17; TEMP 97.3; O2SAT 97
[2025-04-13] MEDS: levoTHYROxine VIAL 100MCG IV SCH (09:07)
[2025-04-13] MEDS: Vitamin B Complex/Vit C/Folic Acid PO SCH (09:08)
--- NOTE | 2025-04-13 09:46 | PN ---
NEPHROLOGY PROGRESS NOTE Date/Time Patient Seen: Apr 13, 2025 SUBJECTIVE: This is an 84-year-old female chronic kidney disease, anemia, diabetes mellitus type 2, hypertension, skin cancer, history of TIA. She presented to [facility] for evaluation of right flank pain onset one week. Urine culture was positive for strep agalactiae group B She continues on antibiotics She was found to have elevated BUN/creatinine. Renal function remains elevated Electrolytes are stable. Renal ultrasound was noted Hemoglobin was noted, she has been started on IV iron She was seen in the medical floor, in no acute distress No family at the bedside REVIEW OF SYSTEMS: GENERAL: Negative for any nausea, vomiting, fevers, chills, or weight loss. NEUROLOGIC: Negative for any blurry vision, blind spots, double vision, facial asymmetry, dysphagia, dysarthria, hemiparesis, hemisensory deficits, vertigo, a taxia. HEENT: Negative for any head trauma, neck trauma, neck stiffness, photophobia, phonophobia, sinusitis, rhinitis. CARDIAC: Negative for any chest pain, dyspnea on exertion, paroxysmal nocturnal dyspnea, peripheral edema. PULMONARY: Negative for any shortness of breath, wheezing, COPD, or TB exposure. GASTROINTESTINAL: Negative for any abdominal pain, nausea, vomiting, bright red blood per rectum, melena. GENITOURINARY: Negative for any dysuria, hematuria, incontinence. INTEGUMENTARY: Negative for any rashes, cuts, insect bites. RHEUMATOLOGIC: Negative for any joint pains, photosensitive rashes, history of vasculitis or kidney problems. HEMATOLOGIC: Negative for any abnormal bruising, frequent infections or bleedi ng. Vital Signs (last 8hr) Date Time Temp Pulse Resp B/P (MAP) Pulse Ox O2 Delivery O2 Flow Rate FiO2 04/13/25 08:00 97.3 66 17 140/64 97 Room Air 04/13/25 04:25 97.5 58 17 123/53 98 Room Air 21 PHYSICAL EXAM: GENERAL: Alert and oriented x 3. No acute distress. Well-nourished. EYES: EOMI. Anicteric. HENT: Moist mucous membranes. No scleral icterus. No cervical lymphadenopathy. LUNGS: Clear to auscultation bilaterally. No accessory muscle use. CARDIOVASCULAR: Regular rate and rhythm. No murmur. No JVD. ABDOMEN: Soft, non-tender and non-distended. No palpable masses. EXTREMITIES: No edema. Non-tender. SKIN: No rashes or lesions. Warm. NEUROLOGIC: No focal neurological deficits. CN II-XII grossly intact, but not individually tested. PSYCHIATRIC: Cooperative. Appropriate mood and affect. Current Medications Medications (Trade) Dose Ordered Sig/Ramirez Route PRN Reason Start Time Stop Time Status Last Admin Dose Admin Acetaminophen (TYLenol 325MG TAB) 650 mg Q4H PRN PO MILD PAIN (1-3) 04/11/25 17:30 05/11/25 17:29 Acetaminophen (TYLenol 325MG TAB) 650 mg Q6H PRN PO TEMPERATURE GREATER THAN 101.5 04/11/25 17:30 05/11/25 17:29 Acetaminophen/ Hydrocodone Bitart (NORco 5/325MG) 1 tab Q6H PRN PO PAIN6-10 04/12/25 01:00 04/17/25 00:59 04/13/25 04:34 1 TAB Alprazolam (XANax 0.5MG) 0.5 mg Q6H PRN PO ANXIETY/AGITATION 04/11/25 17:30 05/11/25 17:29 Artificial Tears (Artificial Tears) 1 DROP Q2H PRN OP DRY EYES 04/11/25 17:30 05/11/25 17:29 Benzocaine (Cepacol Sore Throat Lozenge) 1 each Q2H PRN MM SORE THROAT 04/11/25 17:30 05/11/25 17:29 Ceftriaxone Sodium (Rocephin 2gm Inj) 2 gm Q24H IVPB 04/11/25 22:00 04/11/25 22:44 DC 04/11/25 22:41 2 GM Docusate Sodium (COLace 100MG CAP) 100 mg BID PRN PO CONSTIPATION 04/11/25 17:30 05/11/25 17:29 Famotidine (Pepcid 20mg Vial) 20 mg BID IV 04/11/25 21:00 04/12/25 06:28 DC 04/11/25 21:31 20 MG Famotidine (Pepcid 20mg Vial) 20 mg Q48H IV 04/13/25 21:00 05/11/25 20:59 Guaifenesin (RobiTUSSin SUGAR-FREE 100 MG/ 5 ML UDCUP) 200 mg Q4H PRN PO COUGH 04/11/25 17:30 05/11/25 17:29 Iron Sucrose (VenoFER) 200 mg DAILY08 IV 04/12/25 14:30 04/14/25 14:29 04/13/25 09:07 200 MG Lactulose (Constulose 20gm/ 30ml Udcup) 20 gm BID PRN PO CONSTIPATION 04/11/25 17:30 05/11/25 17:29 Levothyroxine Sodium (SYNTHroid VIAL 100MCG) 100 mcg SYN IV 04/13/25 08:30 05/13/25 08:29 04/13/25 09:07 100 MCG Loperamide HCl (Imodium) 2 mg Q6H PRN PO AFTER EACH LOOSE STOOL 04/11/25 17:30 05/11/25 17:29 Nitroglycerin (Nitrostat) 0.4 mg PROTOCOL PRN SL CHEST PAIN 04/11/25 17:30 05/11/25 17:29 Ondansetron HCl (zoFRAN 4MG INJ) 4 mg Q6H PRN IV NAUSEA/VOMITING 04/11/25 17:30 05/11/25 17:29 Pharmacy Profile Note (Pharmacy Communication) 1 each ONCE MISC 04/11/25 13:30 04/11/25 13:40 DC Piperacillin Sod/ Tazobactam Sod (Zosyn 3.375gm+NS 50ml) 3.375 gm Q12H IVPB 04/12/25 05:00 04/22/25 04:59 04/13/25 04:33 3.375 GM Piperacillin Sod/ Tazobactam Sod (Zosyn 3.375gm+NS 50ml) 3.375 gm Q8H IV 04/12/25 08:00 04/12/25 06:27 DC Polyethylene Glycol (MIRalax 3350 17 GM POWD.PACK) 17 gm DAILY PRN PO CONSTIPATION 04/11/25 17:30 05/11/25 17:29 Sodium Chloride 1,000 ml @ 75 mls/hr [id number] IV 04/11/25 22:00 04/12/25 08:53 DC 04/11/25 22:41 75 MLS/HR Sodium Chloride 1,000 ml @ 100 mls/hr Q10H IV 04/12/25 16:00 8/28/25 15:59 04/12/25 16:00 100 MLS/HR Sodium Chloride (NS 50ml) 50 ml AD IV 04/12/25 04:00 04/12/25 06:27 DC Vitamin B Complex/ Vit C/Folic Acid (Nephrovite Tablet) 1 cap DAILY PO 04/13/25 09:00 05/13/25 08:59 04/13/25 09:08 1 CAP LABORATORY: [ ] Hematology Labs: Test 04/13/25 04:10 04/11/25 12:20 Range/Units White Blood Count 7.4 # 4.8-10.8 K/uL Red Blood Count 3.04 L 4.00-5.50 MIL/uL Hemoglobin 7.8 L 12.0-16.0 g/dL Hematocrit 26.6 L 36-48 % Mean Corpuscular Volume 87.5 79-99 fL Mean Corpuscular Hemoglobin 25.7 L 27.0-33.0 pg Mean Corpuscular Hemoglobin Concent 29.3 L 32.0-36.0 g/dL Red Cell Distribution Width 15.9 H 11.0-15.5 % Platelet Count 257 130-400 K/uL Mean Platelet Volume 9.8 7.5-10.5 fL Nucleated Red Blood Cells 0.0 0.0-0.19 % Immature Granulocyte % (Auto) 0.2 0-1 % Neutrophils (%) (Auto) 53.9 40.0-77.0 % Lymphocytes (%) (Auto) 32.7 21.0-51.0 % Monocytes (%) (Auto) 7.8 3.0-13.0 % Eosinophils (%) (Auto) 4.1 0.0-8.0 % Basophils (%) (Auto) 1.3 0.0-5.0 % Neutrophils # (Auto) 3.3 1.8-7.7 K/uL Lymphocytes # (Auto) 2.0 1.0-4.8 K/uL Monocytes # (Auto) 0.5 0.1-1.0 K/uL Eosinophils # (Auto) 0.25 0.00-0.70 K/uL Basophils # (Auto) 0.08 0.00-0.20 K/uL Absolute Immature Granulocyte (auto 0.01 0-1 K/uL Red Blood Cell Morphology See comments Chemistry Labs: Test 04/13/25 04:10 04/12/25 09:39 Range/Units Sodium Level 141 136-145 mmol/L Potassium Level 4.3 3.5-5.1 mmol/L Chloride Level 105 101-111 mmol/L Carbon Dioxide Level 27 21-32 mmol/L Blood Urea Nitrogen 26 H 7-18 mg/dL Creatinine 1.9 H 0.5-1.0 mg/dL Glomerular Filtration Rate Calc 26 >90 mL/min Random Glucose 98 70-105 mg/dL Uric Acid 7.5 H 2.6-7.2 mg/dL Total Calcium 8.4 L 8.5-10.1 mg/dL Phosphorus Level 4.5 2.5-4.9 mg/dL Magnesium Level 1.70 L 1.80-2.40 mg/dL Total Bilirubin 0.3 0.2-1.0 mg/dL Aspartate Amino Transf (AST/SGOT) 14 10-37 U/L Alanine Aminotransferase (ALT/SGPT) 14 12-78 U/L Alkaline Phosphatase 63 50-136 U/L Total Protein 6.0 6.0-8.3 g/dL Albumin 3.1 L 3.5-5.0 g/dL Thyroid Stimulating Hormone (TSH) 144.05 H 0.36-3.74 uIU/mL Free Thyroxine (T4) Direct 0.14 L 0.76-1.46 ng/dL Free Triiodothyronine (T3) pg/mL 1.19 L 2.18-3.98 pg/mL Iron Level 31 L 50-170 mcg/dL Total Iron Binding Capacity 309 250-450 mcg/dL Percent Iron Saturation 10.0 L 22-44 % DIAGNOSTICS / RADIOLOGY: [place] [address] IMAGING REPORT Signed PATIENT: DWAIN LINDSAY MR#: [id number] : 1940 SEX: F AGE: 84 LOCATION: [facility] ORDER 44 STATUS: ADM IN REPORT#: [id number] SERVICE 41 REASON: WILFREDO ORDERING PHYSICIAN: ESMER WELLS PROCEDURE: RENAL - US RENAL SONOGRAM EXAM: US Retroperitoneum Complete, Renal. CLINICAL HISTORY: 84-year-old female with acute kidney insufficiency. TECHNIQUE: Real-time ultrasound of the retroperitoneum (complete) with image documentation. COMPARISON: None provided. FINDINGS: RIGHT KIDNEY: Measures approximately 9.6 x 4.8 x 4.7 cm. Normal contour. No evidence of hydronephrosis or focal mass. Cortical echogenicity is within normal limits. Corticomedullary differentiation is preserved. LEFT KIDNEY: Measures approximately 9.1 x 4.8 x 4.0 cm. Limited visualization of the superior pole due to overlying bowel gas. No hydronephrosis seen in the visualized portion. Cortical echogenicity appears within normal limits. No visible masses. BLADDER: Wall measures approximately 4 mm. Not fully distended, limiting evaluation. No intraluminal masses or stones identified. Urinary bladder is underdistended; recommend repeat evaluation with better filling if clinically indicated. Kidneys are normal in size and shape for age, without sonographic evidence of obstruction. Limited view of the superior pole of the left kidney. Findings do not suggest hydronephrosis or acute obstruction. IMPRESSION: 1. No hydronephrosis or acute obstruction. 2. Limited visualization of the superior pole of the left kidney due to overlying bowel gas. 3. Underdistended urinary bladder; recommend repeat evaluation with better filling if clinically indicated. /[place] DICTATED BY: HOSSEIN OSPINA MD DATE: 04/12/251415 ELECTRONICALLY SIGNED BY: HOSSEIN OSPINA MD DATE: 04/12/251415 PATIENT: DWAIN LINDSAY MR#: [id number] : 1940 SEX: F AGE: 84 LOCATION[facility] ORDER 120 STATUS: REG ER REPORT#: [id number] SERVICE 06 REASON: R flank pain ORDERING PHYSICIAN: ADORE HERNANDEZ PROCEDURE: ABD PEL WO - CT ABDOMEN/PELVIS W/O CONTRAST ADDENDUM REPORT ADDENDUM: Correction: Results were shared by telephone at 3:01 pm on 04-11-25 and acknowledged by Adore Pavon /[place] ADDENDUM: Results were shared by telephone at 3:01 pm on 04-10-25 and acknowledged by Adore Pavon /[place] EXAM: CT Abdomen and Pelvis without Intravenous Contrast CLINICAL HISTORY: 84-year-old female with right flank pain TECHNIQUE: Axial computed tomography images of the abdomen and pelvis without intravenous contrast. Dose reduction technique was used including one or more of the following: automated exposure control, adjustment of mA and kV according to patient size, and/or iterative reconstruction. CONTRAST: None. COMPARISON: 06/14/2018 FINDINGS: LUNG BASES: Atelectasis. Tiny pulmonary micronodules, question inflammatory or infectious nodules. LIVER: Unremarkable. GALLBLADDER AND BILE DUCTS: Status post cholecystectomy with surgical clips. No ductal dilation. PANCREAS: Unremarkable. SPLEEN: Multiple splenic calcifications. ADRENAL GLANDS: Unremarkable. KIDNEYS, URETERS, AND BLADDER: Unremarkable. No hydronephrosis or nephrolithiasis. No ureteral or bladder calculi. Nonspecific bilateral perinephric fat stranding. STOMACH AND BOWEL: No obstruction. No wall thickening. No CT evidence of colitis. Left colon and sigmoid colon diverticulosis without diverticulitis. APPENDIX: Normal. PERITONEUM: No free fluid. No free air. LYMPH NODES: No lymphadenopathy. REPRODUCTIVE: Unremarkable as visualized. VASCULATURE: Atherosclerotic aortic and coronary arteries. Atherosclerotic aortoiliac bifurcation. No aortic aneurysm. ABDOMINAL WALL AND SOFT TISSUES: Anterior abdominal wall hernia containing mesenteric fat and some loops of small bowel without evidence of bowel obstruction. BONES: Fixation hardware in the lower lumbar spine. [id number] degenerative changes in the lumbar spine. No fracture or suspicious osseous abnormality. IMPRESSION: 1. No acute intra-abdominal or pelvic abnormality related to right flank pain. 2. Anterior abdominal wall hernia containing mesenteric fat and some loops of small bowel without evidence of bowel obstruction. /[place] DICTATED BY: HOSSEIN OSPINA MD DATE: 04/11/25 1507 ELECTRONICALLY SIGNED BY: DATE: EXAM: CT Abdomen and Pelvis without Intravenous Contrast CLINICAL HISTORY: 84-year-old female with right flank pain TECHNIQUE: Axial computed tomography images of the abdomen and pelvis without intravenous contrast. Dose reduction technique was used including one or more of the following: automated exposure control, adjustment of mA and kV according to patient size, and/or iterative reconstruction. CONTRAST: None. COMPARISON: 06/14/2018 FINDINGS: LUNG BASES: Atelectasis. Tiny pulmonary micronodules, question inflammatory or infectious nodules. LIVER: Unremarkable. GALLBLADDER AND BILE DUCTS: Status post cholecystectomy with surgical clips. No ductal dilation. PANCREAS: Unremarkable. SPLEEN: Multiple splenic calcifications. ADRENAL GLANDS: Unremarkable. KIDNEYS, URETERS, AND BLADDER: Unremarkable. No hydronephrosis or nephrolithiasis. No ureteral or bladder calculi. Nonspecific bilateral perinephric fat stranding. STOMACH AND BOWEL: No obstruction. No wall thickening. No CT evidence of colitis. Left colon and sigmoid colon diverticulosis without diverticulitis. APPENDIX: Normal. PERITONEUM: No free fluid. No free air. LYMPH NODES: No lymphadenopathy. REPRODUCTIVE: Unremarkable as visualized. VASCULATURE: Atherosclerotic aortic and coronary arteries. Atherosclerotic aortoiliac bifurcation. No aortic aneurysm. ABDOMINAL WALL AND SOFT TISSUES: Anterior abdominal wall hernia containing mesenteric fat and some loops of small bowel without evidence of bowel obstruction. BONES: Fixation hardware in the lower lumbar spine. [id number] degenerative changes in the lumbar spine. No fracture or suspicious osseous abnormality. IMPRESSION: 1. No acute intra-abdominal or pelvic abnormality related to right flank pain. 2. Anterior abdominal wall hernia containing mesenteric fat and some loops of small bowel without evidence of bowel obstruction. 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 We have reviewed external records in detail Magnesium replacement has been ordered Continue with IV iron Require close monitoring of renal function and electrolytes Order CBC, CMP, and electrolytes in am Continue with antibiotics Renal diabetic diet BiPAP as necessary, for respiratory distress Monitor blood pressure adjust medication doses as needed Avoid hypotensive episodes May use Dilaudid 0.5 mg IV every 6 hours as needed for severe pain Monitor blood sugars Strict intake, output, and daily weight should be monitored Please renally adjust medications Avoid nephrotoxic and nonsteroidal drugs Avoid contrast if possible Will continue to monitor renal function, anemia, electrolytes Treatment plan discussed with patient Questions were answered We have discussed with the other team physicians in detail about the care plan We will continue to monitor the patient closely ATTESTATION BY PHYSICIAN I have seen and examined the patient. I reviewed the documentation, medical decision making, and treatment plan as noted by the mid-level provider above. I agree with the findings and plan of care. FLORES VALDEZ MD, [facility] Apr 13, 2025 09:46
[2025-04-13 11:20] VITALS: BP 132/74; PULSE 65; RESP 18; TEMP 97.5
--- NOTE | 2025-04-13 11:48 | PN ---
[facility] PROGRESS NOTE Date Patient Seen: Apr 13, 2025 Time of Visit: 11:40 Supervising Physician: Emmie Sams Primary Care Physician: ABBE GRULLON MD (PCP) Outpatient Specialists: Inpatient Consults: nephrology PROBLEM LIST: Acute complicated cystitis, POA, + for beta hemolytic streptococcus, group B, per outpatient urine culture on 04/07/25 Acute kidney injury, GFR 29 Acute on chronic kidney disease, GFR 41on 02/14/2024 Anemia chronic disease Iron-deficiency anemia Diabetes mellitus with hyperglycemia Uncontrolled hypertension History of Skin cancer to upper head History of TIA Hypothyroidism Plan Summary Supplemental oxygen as needed Continue Zosyn Follow urine cultures and modify antibiotics accordingly Continue NS at 100 mL an hour IV iron daily x2 days Follow Dr. Montez recommendations Levothyroxine 100 mcg IV daily x3 days Repeat a.m. labs Dispo: Home INTERVAL HISTORY: Mrs. Haywood is an 84-year-old female who presented to [facility] [place] evaluation of right flank pain onset one week. She reports that she was previously seen by PCP and urine one send off on 04/07/2025. She states the PCP reported the urine and urine cultures were negative but she continued with back discomfort which she associated with a urinary tract infection. She reports that she saw her urine from [facility] which read abnormal. The patient has the [facility] urine results/ findings which state "beta hemolytic streptococcus, group B. Penicillin and ampicillin are drug of choice for treatment". Labs were reviewed. Patient has a GFR of 29, BUN 25, creatinine 1.7, glucose 187, hemoglobin 8.5, hematocrit 28.9, RBC 3.3. UA is positive for leuk EST. CT abdomen and pelvis without contrast: 1. No acute intra-abdominal or pelvic abnormality related to right flank pain. 2. Anterior abdominal wall hernia containing mesenteric fat and some loops of small bowel without evidence of bowel obstruction. ED provider request patient be admitted with the diagnosis of UTI, WILFREDO, and anemia. assessed the patient at bedside in 420. The patient appeared comfortable, breathing was even, unlabored, in no distress, and was conversive. I informed her of labs, diagnostics, and plan of care. She verbalized understanding and is in agreement with the plan. 04/12 - patient is seen up in bed appears to be weak, deconditioned. Patient does not appear to be in any acute distress. Patient remains on room air denies chest discomfort, chest pain, or dyspnea with exertion. No acute changes reported overnight. Patient continues with renal dysfunction. We will continue IV fluids for now. Patient is found to have iron-deficiency anemia therefore we will replace with IV iron supplementation for now. We will continue current treatment plan for now. Vital signs are stable. Labs are within normal limits. We will plan to DC home in the next 24-48 hours. 04/13 - patient is seen sitting up at the side of the bed continues to be weak and deconditioned. Patient remains on room air and denies chest discomfort, chest pain, or dyspnea with exertion. No acute changes reported overnight. Today's labs show elevated TSH at 144.05, free T4 0.14 and free T3 of 1.19. Patient reports she has never had thyroid levels checked that she can recall. We will start patient on levothyroxine for now. Patient was evaluated by Nephrology and appreciate their recommendations. We will continue current treatment plan for now. REVIEW OF SYSTEMS: 12 point ROS reviewed with patient. Pertinent positives mentioned above. Otherwise negative. PHYSICAL EXAM: GENERAL: Alert, awake oriented x 3 HEENT: EOMI, Sclera non icteric, moist mucosa NECK: Supple, no JVD, trachea midline LUNGS: Clear breath sounds bilaterally. No wheezes HEART: Regular rate and rhythm. Normal S1 and S2, without murmurs ABD: Abdomen soft, nontender. Bowel sounds present EXT: No clubbing cyanosis or edema NEURO: Alert and oriented X3, follows commands Vital Signs (last 8hr) Date Time Temp Pulse Resp B/P (MAP) Pulse Ox O2 Delivery O2 Flow Rate FiO2 04/13/25 11:20 97.5 65 18 132/74 97 Room Air 04/13/25 08:00 97.3 66 17 140/64 97 Room Air 04/13/25 04:25 97.5 58 17 123/53 98 Room Air 21 LABS: Hematology Labs: Test 04/13/25 04:10 04/11/25 12:20 Range/Units White Blood Count 7.4 # 4.8-10.8 K/uL Red Blood Count 3.04 L 4.00-5.50 MIL/uL Hemoglobin 7.8 L 12.0-16.0 g/dL Hematocrit 26.6 L 36-48 % Mean Corpuscular Volume 87.5 79-99 fL Mean Corpuscular Hemoglobin 25.7 L 27.0-33.0 pg Mean Corpuscular Hemoglobin Concent 29.3 L 32.0-36.0 g/dL Red Cell Distribution Width 15.9 H 11.0-15.5 % Platelet Count 257 130-400 K/uL Mean Platelet Volume 9.8 7.5-10.5 fL Nucleated Red Blood Cells 0.0 0.0-0.19 % Immature Granulocyte % (Auto) 0.2 0-1 % Neutrophils (%) (Auto) 53.9 40.0-77.0 % Lymphocytes (%) (Auto) 32.7 21.0-51.0 % Monocytes (%) (Auto) 7.8 3.0-13.0 % Eosinophils (%) (Auto) 4.1 0.0-8.0 % Basophils (%) (Auto) 1.3 0.0-5.0 % Neutrophils # (Auto) 3.3 1.8-7.7 K/uL Lymphocytes # (Auto) 2.0 1.0-4.8 K/uL Monocytes # (Auto) 0.5 0.1-1.0 K/uL Eosinophils # (Auto) 0.25 0.00-0.70 K/uL Basophils # (Auto) 0.08 0.00-0.20 K/uL Absolute Immature Granulocyte (auto 0.01 0-1 K/uL Red Blood Cell Morphology See comments Chemistry Labs: Test 04/13/25 04:10 04/12/25 09:39 Range/Units Sodium Level 141 136-145 mmol/L Potassium Level 4.3 3.5-5.1 mmol/L Chloride Level 105 101-111 mmol/L Carbon Dioxide Level 27 21-32 mmol/L Blood Urea Nitrogen 26 H 7-18 mg/dL Creatinine 1.9 H 0.5-1.0 mg/dL Glomerular Filtration Rate Calc 26 >90 mL/min Random Glucose 98 70-105 mg/dL Uric Acid 7.5 H 2.6-7.2 mg/dL Total Calcium 8.4 L 8.5-10.1 mg/dL Phosphorus Level 4.5 2.5-4.9 mg/dL Magnesium Level 1.70 L 1.80-2.40 mg/dL Total Bilirubin 0.3 0.2-1.0 mg/dL Aspartate Amino Transf (AST/SGOT) 14 10-37 U/L Alanine Aminotransferase (ALT/SGPT) 14 12-78 U/L Alkaline Phosphatase 63 50-136 U/L Total Protein 6.0 6.0-8.3 g/dL Albumin 3.1 L 3.5-5.0 g/dL Thyroid Stimulating Hormone (TSH) 144.05 H 0.36-3.74 uIU/mL Free Thyroxine (T4) Direct 0.14 L 0.76-1.46 ng/dL Free Triiodothyronine (T3) pg/mL 1.19 L 2.18-3.98 pg/mL Iron Level 31 L 50-170 mcg/dL Total Iron Binding Capacity 309 250-450 mcg/dL Percent Iron Saturation 10.0 L 22-44 % DIAGNOSTICS / RADIOLOGY RESULTS: [ ] PLAN -Admit to medical floor. -Start Zosyn 3.375 IV q.8 hours per outpatient urine culture results. (Rocephin2 g IV given on arrival) -NS 75 mL/hour overnight, and discontinue at 7:00 a.m.. -Follow urine cultures. -Consult Nephrology for acute on chronic kidney injury. -Obtain renal sonogram. -Reconciled home medication: Hydrocodone/acetaminophen. -PRN medications for: Pain management, fever, hypertension, N/V, constipation. -Glucometer checks AC & HS needed with insulin regular sliding scale coverage as needed. -Blood pressure checks every 4 hours and as needed. -Reconcile home medications once available. - Monitor renal and liver function. -Monitor electrolytes and treat accordingly PRN -AM labs. -GI and DVT prophylaxis -Further plan/orders per hospitalization course. NEURO: Minimize central acting medications as possible. Maintain fall precautions, adequate lighting during the day PULMONARY: Supplemental 02 as needed. Maintain aspiration precautions at all times CARDIOVASCULAR: Follow hemodynamics. Vital signs per facility protocol GI & NUTRITION: Continue with nutritional support. Continue stool softeners and laxatives as needed. KIDNEYS & ELECTROLYTES: Strict monitoring of intake, output and overall fluid balance. Avoid nephrotoxic medications to the extent possible. Medications to be dosed according to renal function. Monitor electrolytes and replace as needed ENDOCRINE: Maintain blood glucose between 100-180 at all times. Hypoglycemia protocol in place INFECTIOUS DISEASE: Trend temperature, WBC and procalcitonin level Follow cultures, deescalate antibiotics as soon as possible. Panculture if new onset fever ONCOLOGY/HEMATOLOGY/COAGULATION: Monitor for s/s of bleeding Monitor hemoglobin, coagulation studies as needed SKIN: Pressure ulcer prevention per facility protocol Specialty mattress ORTHO/REHAB: Continue PT/OT Prophylaxis: Continue GI and DVT prophylaxis Code Status: Full Resuscitation Disposition: Home in 24-48 hours ATTESTATION BY PHYSICIAN The patient has been seen and evaluated, the case has been discussed with the PERSONAL [employer]ES INSURANCE ADVISOR, I agree with the clinical findings and plan of care. Ayden Sams MD, ECTOR N PERSONAL [employer] INSURANCE ADVISOR Apr 13, 2025 11:48
[2025-04-13] MEDS: MAGNESIUM 2GM PREMIX 50ML 50 ML IV PRN (12:32)
[2025-04-13 16:00] VITALS: BP 159/57; PULSE 61; RESP 18; TEMP 97.5
[2025-04-13] MEDS: FAMOTIDINE 20MG VIAL IV SCH (21:00)
[2025-04-13 21:22] VITALS: BP 150/59; PULSE 67; RESP 18; TEMP 97.6
[2025-04-14] VITALS (7 sets, daily range): BP systolic 134–163; BP diastolic 55–74; PULSE 57–67; RESP 17–19; TEMP 97.5–98.1; O2SAT 94–97
[2025-04-14 04:29] LABS: NUCLEATED RED BLOOD CELLS 0.0 % (0.0-0.19); PLATELET COUNT (AUTO) 215.0 K/uL (130-400); RED BLOOD CELL COUNT(AUTO) 2.78 MIL/uL (4.00-5.50); RED CELL DISTRIBUTION WIDTH 15.8 % (11.0-15.5); WHITE BLOOD COUNT (AUTO) 6.5 K/uL (4.8-10.8)
[2025-04-14 04:49] LABS: ASPARTATE AMINOTRANSFERASE 15.0 U/L (10-37); CREATININE 2.1 mg/dL (0.5-1.0); GLOMERULAR FILTR. RATE CALC 23.0 mL/min (>90); GLUCOSE,RANDOM 91.0 mg/dL (70-105); SODIUM SERUM 138.0 mmol/L (136-145); TOTAL PROTEIN, SERUM 5.6 g/dL (6.0-8.3); UREA NITROGEN, BLOOD 23.0 mg/dL (7-18)
--- NOTE | 2025-04-14 09:06 | CONS ---
INFECTIOUS DISEASE CONSULTATION NOTE DATE OF SERVICE: 04/13/2025 REQUESTING PHYSICIAN: Yenny Rodriguez NP REASON FOR CONSULTATION: UTI, on antibiotic management. HISTORY OF PRESENT ILLNESS: An 84-year-old female with diabetes mellitus, hypertension, UTI, skin cancer, , who presented with right flank pain. The patient also complains of urinary frequency. No nausea, vomiting, or diarrhea. CT of the abdomen was done which showed ventral hernia. Renal sonogram was unremarkable. Urinalysis was positive and urine culture growing group B streptococcus. The patient has been started on Zosyn. Denies sick contact. No recent travel. Urine culture is also done as an outpatient grew some organism. PAST MEDICAL HISTORY: * Diabetes mellitus. * Hypertension. * UTI. * Scalp skin cancer. * TIA. * Chronic kidney disease. * Hypothyroidism. PAST SURGICAL HISTORY: Back surgery ALLERGIES: * BACLOFEN. * FORTAZ. * COLCHICINE. * NIACIN. * LEVOPHED. * TETRACYCLINE CURRENT MEDICATIONS: Include: * Synthroid. * Zosyn. * Insulin. * Tylenol. * Lovenox. SOCIAL HISTORY: Lives alone. No alcohol, tobacco, or illicit drug use. FAMILY HISTORY: Noncontributory. REVIEW OF SYSTEMS: Greater than 10-system were reviewed and negative except as documented above. PHYSICAL EXAMINATION: GENERAL: An elderly female, awake. VITAL SIGNS: Temperature 97.9, pulse 82, respirations 18. EYES: No icterus. Pupils are equal and reactive. HENT: No oral thrush seen. Moist oral mucosa. NECK: Supple. No JVD or thyromegaly. LUNGS: Good air entry. No rales, no rhonchi. CARDIOVASCULAR: S1 and S2 regular. No murmur heard. ABDOMEN: Full, soft, nontender. Bowel sound is present. CENTRAL NERVOUS SYSTEM: Awake, alert, oriented x 3. No focal deficits. SKIN: No rashes, no itchiness. LYMPHATIC: No peripheral lymphadenopathy. MUSCULOSKELETAL: No joint swelling, erythema, or tenderness. VASCULAR: No ischemia or gangrene of extremities. LABORATORY DATA: Sodium 141, potassium 4.3, BUN 26, creatinine 1.9, WBC 7.4, hemoglobin 7.8, platelets 257. Urine culture grew group B Streptococcus. RADIOLOGY: Renal sonogram unremarkable. CT of the abdomen with no acute intraabdominal finding. ASSESSMENT: A 84-year-old female who presented with left flank pain. CURRENT PROBLEMS: Include: * UTI. * Acute on chronic renal failure. * Diabetes mellitus. * Hypothyroidism. * Anemia. PLAN: * Continue Zosyn. * Followup cultures. * Continue antiemetic. * Continue antidiabetic. * Continue nutritional support. * Monitor electrolytes. * The patient will be followed up closely. Thank you for allowing me to participate in the care of this patient. TID: [id number] RECEIPT: [id number]
[2025-04-14] MEDS: levoTHYROxine VIAL 100MCG IV SCH (09:10)
--- NOTE | 2025-04-14 09:17 | PN ---
FOLLOWUP PROGRESS NOTE SUBJECTIVE: An 84-year-old female with history of diabetes mellitus, hypertension. The patient initially presented with complaints of flank pain. The patient's urine culture was positive, started on some antibiotics. Laboratory values revealed an elevated BUN and creatinine, and the patient is being seen as a followup visit for all the above. The patient also with significant anemia, started on the iron. She is being seen at the followup visit for all the above. REVIEW OF SYSTEMS: CONSTITUTIONAL: She is feeling improved overnight. HEENT: No change in vision. No change in hearing. CARDIOVASCULAR: There is no current chest pain or palpitations. PULMONARY: No shortness of breath. GASTROINTESTINAL: She is now tolerated a diet. MUSCULOSKELETAL: Complains of weakness. PHYSICAL EXAMINATION: VITAL SIGNS: Blood pressure is 134/57, pulse in the 50s, afebrile. GENERAL: She is a chronically ill female, lying in bed on the medical floor. HEENT: Head is atraumatic. Pupils are equal, roving to light. Oropharynx is without exudate. Nares clear. NECK: There is no JVP. There is no thyromegaly, no mass. CARDIOVASCULAR: Regular. There is no S3 or S4 gallop. LUNGS: Coarse with equal thoracic movement. ABDOMEN: Soft, nondistended, and nontender. EXTREMITIES: Reveal no clubbing, no cyanosis. NEUROLOGICAL: She is awake. She is alert. She is oriented. SKIN: Reveals no rashes or nodules. BACK: There is no CVA tenderness. No back deformities. LABORATORY DATA: Sodium 138, potassium 4.3, BUN 23, creatinine is 2. Hemoglobin 7.1, hematocrit 24. Iron levels are noted. IMPRESSION: * Acute on chronic renal dysfunction. * Diabetes mellitus. * Hypertension. * Anemia. PLAN: The patient's creatinine has remained stable. She has a history of known chronic renal insufficiency. The patient remains on the IV fluids. The patient is now tolerating a diet without difficulty. She does have significant anemia and is receiving IV iron. We will continue to follow the patient closely. All labs can be repeated in the a.m. Once the patient is discharged, the patient will follow up in the [facility]. TID: [id number] RECEIPT: [id number]
--- NOTE | 2025-04-14 11:30 | PN ---
[facility] PROGRESS NOTE Date Patient Seen: Apr 14, 2025 Time of Visit: 11:24 Supervising Physician: Melissa Sams Primary Care Physician: ABBE GRULLON MD (PCP) Outpatient Specialists: Inpatient Consults: nephrology PROBLEM LIST: Acute complicated cystitis, POA, + for beta hemolytic streptococcus, group B, per outpatient urine culture on 04/07/25 Acute on chronic renal failure, GFR 29 Chronic kidney disease, GFR 41on 02/14/2024 Anemia chronic disease Iron-deficiency anemia Diabetes mellitus with hyperglycemia Uncontrolled hypertension History of Skin cancer to upper head History of TIA Hypothyroidism Plan Summary Supplemental oxygen as needed Augmentin x 5 days Continue NS at 100 mL an hour IV iron daily x2 days Follow nephrology recommendations Levothyroxine 100 mcg IV daily x3 days Obtain FOBT Peripheral smear Consult Dr. Montes De Oca Repeat a.m. labs Dispo: Home INTERVAL HISTORY: Mrs. Haywood is an 84-year-old female who presented to [facility] for evaluation of right flank pain onset one week. She reports that she was previously seen by PCP and urine one send off on 04/07/2025. She states the PCP reported the urine and urine cultures were negative but she continued with back discomfort which she associated with a urinary tract infection. She reports that she saw her urine from [facility] which read abnormal. The patient has the [facility] urine results/ findings which state "beta hemolytic streptococcus, group B. Penicillin and ampicillin are drug of choice for treatment". Labs were reviewed. Patient has a GFR of 29, BUN 25, creatinine 1.7, glucose 187, hemoglobin 8.5, hematocrit 28.9, RBC 3.3. UA is positive for leuk EST. CT abdomen and pelvis without contrast: 1. No acute intra-abdominal or pelvic abnormality related to right flank pain. 2. Anterior abdominal wall hernia containing mesenteric fat and some loops of small bowel without evidence of bowel obstruction. ED provider request patient be admitted with the diagnosis of UTI, WILFREDO, and anemia. assessed the patient at bedside in 420. The patient appeared comfortable, breathing was even, unlabored, in no distress, and was conversive. I informed her of labs, diagnostics, and plan of care. She verbalized understanding and is in agreement with the plan. 04/12 - patient is seen up in bed appears to be weak, deconditioned. Patient does not appear to be in any acute distress. Patient remains on room air denies chest discomfort, chest pain, or dyspnea with exertion. No acute changes reported overnight. Patient continues with renal dysfunction. We will continue IV fluids for now. Patient is found to have iron-deficiency anemia therefore we will replace with IV iron supplementation for now. We will continue current treatment plan for now. Vital signs are stable. Labs are within normal limits. We will plan to DC home in the next 24-48 hours. 04/13 - patient is seen sitting up at the side of the bed continues to be weak a nd deconditioned. Patient remains on room air and denies chest discomfort, chest pain, or dyspnea with exertion. No acute changes reported overnight. Today's labs show elevated TSH at 144.05, free T4 0.14 and free T3 of 1.19. Patient reports she has never had thyroid levels checked that she can recall. We will start patient on levothyroxine for now. Patient was evaluated by N ephrology and appreciate their recommendations. We will continue current treatment plan for now. 04/14 - patient is seen sitting up in side of the bed continues to be weak and deconditioned. Patient does report feeling much improved daily. No acute xiao ges reported overnight. Patient continues with renal dysfunction and remained stable. She does have a history of known chronic renal insufficiency. Patient does continue with significant anemia and today's labs show an H&H of 7.1/24.1 From 8.5/28.9 admission. Patient denies hematemesis, hematochezia or melena. We will obtain peripheral smear and request hematology consult. REVIEW OF SYSTEMS: 12 point ROS reviewed with patient. Pertinent positives mentioned above. Otherwise negative. PHYSICAL EXAM: GENERAL: Alert, awake oriented x 3 HEENT: EOMI, Sclera non icteric, moist mucosa NECK: Supple, no JVD, trachea midline LUNGS: Clear breath sounds bilaterally. No wheezes HEART: Regular rate and rhythm. Normal S1 and S2, without murmurs ABD: Abdomen soft, nontender. Bowel sounds present EXT: No clubbing cyanosis or edema NEURO: Alert and oriented X3, follows commands Vital Signs (last 8hr) Date Time Temp Pulse Resp B/P (MAP) Pulse Ox O2 Delivery O2 Flow Rate FiO2 04/14/25 08:00 97.7 57 17 134/57 94 Room Air 04/14/25 08:00 94 Room Air* 0 21 04/14/25 04:53 98.1 58 17 137/55 98 Room Air LABS: Hematology Labs: Test 04/14/25 03:59 Range/Units White Blood Count 6.5 4.8-10.8 K/uL Red Blood Count 2.78 L 4.00-5.50 MIL/uL Hemoglobin 7.1 L 12.0-16.0 g/dL Hematocrit 24.1 L 36-48 % Mean Corpuscular Volume 86.7 79-99 fL Mean Corpuscular Hemoglobin 25.5 L 27.0-33.0 pg Mean Corpuscular Hemoglobin Concent 29.5 L 32.0-36.0 g/dL Red Cell Distribution Width 15.8 H 11.0-15.5 % Platelet Count 215 130-400 K/uL Mean Platelet Volume 9.6 7.5-10.5 fL Nucleated Red Blood Cells 0.0 0.0-0.19 % Chemistry Labs: Test 04/14/25 03:59 04/13/25 04:10 Range/Units Sodium Level 138 136-145 mmol/L Potassium Level 4.3 3.5-5.1 mmol/L Chloride Level 105 101-111 mmol/L Carbon Dioxide Level 24 21-32 mmol/L Blood Urea Nitrogen 23 H 7-18 mg/dL Creatinine 2.1 H 0.5-1.0 mg/dL Glomerular Filtration Rate Calc 23 >90 mL/min Random Glucose 91 70-105 mg/dL Total Calcium 8.6 8.5-10.1 mg/dL Magnesium Level 2.00 1.80-2.40 mg/dL Total Bilirubin 0.3 0.2-1.0 mg/dL Aspartate Amino Transf (AST/SGOT) 15 10-37 U/L Alanine Aminotransferase (ALT/SGPT) 13 12-78 U/L Alkaline Phosphatase 57 50-136 U/L Total Protein 5.6 L 6.0-8.3 g/dL Albumin 2.9 L 3.5-5.0 g/dL Uric Acid 7.5 H 2.6-7.2 mg/dL Phosphorus Level 4.5 2.5-4.9 mg/dL Thyroid Stimulating Hormone (TSH) 144.05 H 0.36-3.74 uIU/mL Free Thyroxine (T4) Direct 0.14 L 0.76-1.46 ng/dL Free Triiodothyronine (T3) pg/mL 1.19 L 2.18-3.98 pg/mL DIAGNOSTICS / RADIOLOGY RESULTS: [ ] PLAN NEURO: Minimize central acting medications as possible. Maintain fall precautions, adequate lighting during the day PULMONARY: Supplemental 02 as needed. Maintain aspiration precautions at all times CARDIOVASCULAR: Follow hemodynamics. Vital signs per facility protocol GI & NUTRITION: Continue with nutritional support. Continue stool softeners and laxatives as needed. KIDNEYS & ELECTROLYTES: Strict monitoring of intake, output and overall fluid balance. Avoid nephrotoxic medications to the extent possible. Medications to be dosed according to renal function. Monitor electrolytes and replace as needed ENDOCRINE: Maintain blood glucose between 100-180 at all times. Hypoglycemia protocol in place INFECTIOUS DISEASE: Trend temperature, WBC and procalcitonin level Follow cultures, deescalate antibiotics as soon as possible. Panculture if new onset fever ONCOLOGY/HEMATOLOGY/COAGULATION: Monitor for s/s of bleeding Monitor hemoglobin, coagulation studies as needed SKIN: Pressure ulcer prevention per facility protocol Specialty mattress ORTHO/REHAB: Continue PT/OT Prophylaxis: Continue GI and DVT prophylaxis Code Status: Full Resuscitation Disposition: Home in 24-48 hours ATTESTATION BY PHYSICIAN The patient has been seen and evaluated, the case has been discussed with the SEPARATING MACHINE OPERATOR, I agree with the clinical findings and plan of care. Ayden Sams MD, ECTOR N SEPARATING MACHINE OPERATOR Apr 14, 2025 11:30
--- NOTE | 2025-04-14 17:25 | PN ---
INFECTIOUS DISEASE PROGRESS NOTE Date of Service: Apr 14, 2025 SUBJECTIVE: This is a 84-year-old female patient who was seen at bedside in room 420. Patient is awake, alert and oriented x3. The final urine culture results came back positive for Streptococcus agalactiae group B and patient has been started on Zosyn IV every 12 hours. Patient's hemoglobin dropped from 8.5 on admission to 7.1 today and pending a hematology evaluation. Patient on acute on chronic renal failure, BUN is 23 and creatinine of 2.1. No reports of nausea or vomiting. We will continue to follow. PHYSICAL EXAM EYES: Anicteric. Pupils equal and reactive. HENT: No oral thrush seen, moist Oral mucosa NECK: Supple, no JVD or thyromegaly. LUNGS: Good air entry. No rales, no rhonchi. CARDIOVASCULAR: S1, S2 regular. No murmur heard. ABDOMEN: Soft, non tender, bowel sounds present, no organomegaly CENTRAL NERVOUS SYSTEM: Awake, alert, oriented x 3. No focal deficits. SKIN: No rashes, no swelling. LYMPHATICS: No peripheral lymphadenopathy MUSCULOSKELETAL: No joint swelling, erythema or tenderness. EXTREMITIES: No cyanosis or clubbing BACK: No deformity, no pressure ulcer. GENITOURINARY: No dysuria or hematuria Vital Sign (Last 12 Hours) 04/14/25 04/14/25 04/14/25 04/14/25 08:00 08:00 11:26 16:00 Temp 97.7 97.9 Pulse 57 59 60 Resp 17 19 18 B/P (MAP) 134/57 152/67 151/64 Pulse Ox 94 94 98 97 O2 Delivery Room Air* Room Air Room Air Room Air O2 Flow Rate 0 FiO2 21 04/14/25 16:00 Pulse 60 Resp 18 B/P (MAP) 151/64 Pulse Ox 97 O2 Delivery Room Air Intake & Output (last 24hrs) 04/13/25 04/13/25 04/14/25 15:00 23:00 07:00 Output Total 600 ml Balance -600 ml LABS: Laboratory: Test 04/14/25 03:59 04/13/25 04:10 Range/Units White Blood Count 6.5 4.8-10.8 K/uL Red Blood Count 2.78 L 4.00-5.50 MIL/uL Hemoglobin 7.1 L 12.0-16.0 g/dL Hematocrit 24.1 L 36-48 % Mean Corpuscular Volume 86.7 79-99 fL Mean Corpuscular Hemoglobin 25.5 L 27.0-33.0 pg Mean Corpuscular Hemoglobin Concent 29.5 L 32.0-36.0 g/dL Red Cell Distribution Width 15.8 H 11.0-15.5 % Platelet Count 215 130-400 K/uL Mean Platelet Volume 9.6 7.5-10.5 fL Nucleated Red Blood Cells 0.0 0.0-0.19 % Sodium Level 138 136-145 mmol/L Potassium Level 4.3 3.5-5.1 mmol/L Chloride Level 105 101-111 mmol/L Carbon Dioxide Level 24 21-32 mmol/L Blood Urea Nitrogen 23 H 7-18 mg/dL Creatinine 2.1 H 0.5-1.0 mg/dL Glomerular Filtration Rate Calc 23 >90 mL/min Random Glucose 91 70-105 mg/dL Total Calcium 8.6 8.5-10.1 mg/dL Magnesium Level 2.00 1.80-2.40 mg/dL Total Bilirubin 0.3 0.2-1.0 mg/dL Aspartate Amino Transf (AST/SGOT) 15 10-37 U/L Alanine Aminotransferase (ALT/SGPT) 13 12-78 U/L Alkaline Phosphatase 57 50-136 U/L Total Protein 5.6 L 6.0-8.3 g/dL Albumin 2.9 L 3.5-5.0 g/dL Uric Acid 7.5 H 2.6-7.2 mg/dL Phosphorus Level 4.5 2.5-4.9 mg/dL Thyroid Stimulating Hormone (TSH) 144.05 H 0.36-3.74 uIU/mL Free Thyroxine (T4) Direct 0.14 L 0.76-1.46 ng/dL Free Triiodothyronine (T3) pg/mL 1.19 L 2.18-3.98 pg/mL DIAGNOSTICS / RADIOLOGY: PATIENT: DWAIN LINDSAY ACCT: [id number] LOC: [facility] U: [id number] AGE/SX: 84/F ROOM: [facility] RE04/11/[address]: PATRICK BENDER MD : 1940 BED: 1 DIS: STATUS: ADM IN TLOC: SPEC: [id number] LUIS DANIEL: 04/11/25 STATUS: COMP REQ: [id number] RECD: 04/12/[address]: GATO HERNANDEZ [place] [facility] [place]/[address] [facility] [address]: ABBE GRULLON MD [facility]: CLEAN CAT LETICIA VELIZ MD ORDERED: AERO ID & SENS -------- ---- Procedure Result Veronica Date-Time AEROBIC ID & SENSITIVITIES Final 04/12/25-1028 MRL COLONY DESCRIPTION: DAY 1: COLONY COUNT: >100,000 CFU/ML GRAM POSITIVE COCCI IN CHAINS IDENTIFICATION TO FOLLOW BETA HEMOLYTIC STREPTOCOCCUS GROUP B NO FURTHER WORK-UP DONE COMMENT: BETA STREPTOCOCCUS REMAIN SUSCEPTIBLE TO PENICILLIN COMMENT: NO FURTHER WORK-UP STREP AGALACTIAE GROUP B Test(s) performed by: [facility] [address] [place] [address] ASSESSMENT: Urinary tract infection with Streptococcus agalactiae group B. Acute on chronic renal failure. Anemia. PLAN: Continue Zosyn IV every 12 hours. Continue GI prophylaxis. Avoid nephrotoxic medications. Plan is for oral antibiotics on discharge. This case was reviewed and discussed with my supervising physician and the above assessment and plan was formulated and agreed upon. ATTESTATION BY PHYSICIAN I have seen and examined the patient. I reviewed the documentation, medical decision making, and treatment plan as noted by the mid-level provider above. I agree with the findings and plan of care. OSCAR JACOB MD, [facility]TA [facility] Apr 14, 2025 17:25
--- NOTE | 2025-04-14 19:45 | NUR ---
ASSESS SHIFT ASSESSMENT DONE, PLEASE REFER TO CHART. PT REMINDED OF NEED FOR STOOL SAMPLE FOR LAB. PT ALREADY IS AWARE OF NEED FOR SPECIMEN COLLECTION. KEPT COMFORTABLE IN BED. CALL LIGHT WITHIN REACH.
[2025-04-15] VITALS: BP 162/65
[2025-04-15 05:05] VITALS: BP 159/62; PULSE 56; RESP 17; TEMP 98.4
[2025-04-15 06:13] LABS: IMMATURE GRANULOCYTE ABSOLUTE 0.02 K/uL (0-1); NUCLEATED RED BLOOD CELLS 0.0 % (0.0-0.19); PLATELET COUNT (AUTO) 208 K/uL (130-400); RED BLOOD CELL COUNT(AUTO) 2.63 MIL/uL (4.00-5.50); RED CELL DISTRIBUTION WIDTH 15.9 % (11.0-15.5); WHITE BLOOD COUNT (AUTO) 6.1 K/uL (4.8-10.8)
[2025-04-15 06:19] LABS: ASPARTATE AMINOTRANSFERASE 15.0 U/L (10-37); CREATININE 1.7 mg/dL (0.5-1.0); GLOMERULAR FILTR. RATE CALC 29.0 mL/min (>90); GLUCOSE,RANDOM 87.0 mg/dL (70-105); SODIUM SERUM 140.0 mmol/L (136-145); TOTAL PROTEIN, SERUM 5.4 g/dL (6.0-8.3); UREA NITROGEN, BLOOD 21.0 mg/dL (7-18)
--- NOTE | 2025-04-15 06:19 | NUR ---
PAGED PAGED ANIMAL TRAINER SUPERVISOR TUNNEL MINER VIA ANSWERING SERVICE TO REFER CRITICAL LAB RESULTS. AWAITING CALL BACK.
--- NOTE | 2025-04-15 06:31 | NUR ---
ADVICE CLERK ADVICE CLERK YOGESH CALLED BACK AND REFERRED CRITICAL VALUE. NEW ORDERS RECEIVED, PLEASE REFER TO CPOE. KEPT RESTED IN BED. CALL LIGHT WITHIN REACH. FOR MORE CARE.
[2025-04-15 08:00] VITALS: BP 153/88; PULSE 67; RESP 18; TEMP 98.2
[2025-04-15 09:26] VITALS: O2SAT 92
--- NOTE | 2025-04-15 11:15 | NUR ---
BLOOD TRANSFUSION PT VS WERE ASSESSED PRETRANSFUSION BP: 141/64, 62 BPM, 20 RR, 98.8 TEMP. VS AT 5 MINS 153/70, 60 BPM, 18 RR, 98.0 TEMP VS AT 15 MINS 152/67, 57BPM, 20 RR, 97. TEMP PT IS RESTING COMFORTABLY ON THE BED. NO S/S OF DISTRESS OR COMPLAINS OF PAIN. WILL CONTINUE TO MONITOR.
[2025-04-15 12:00] VITALS: BP 159/73; PULSE 63; RESP 18; TEMP 97.6
--- NOTE | 2025-04-15 12:10 | NUR ---
BLOOD TRANSFUSION WAS STOPPED AT 1145. PT IV IS LEAKING. SPOKE TO BLOOD BANK. SEVERAL IV ATTEMPTS WERE PERFORMED ON PT. NO IV WAS PLACED. LALI TAMAYO WAS INFORMED. ORDERED TO USE SONO TO FIND IV.
[2025-04-15] MEDS ORDERED: LEVO100T4 PO (12:58)
--- NOTE | 2025-04-15 13:03 | DS ---
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 Haywood is an 84-year-old female who presented to [facility] ED for evaluation of right flank pain onset one week. She reports that she was previously seen by PCP and urine one send off on 04/07/2025. She states the PCP reported the urine and urine cultures were negative but she continued with back discomfort which she associated with a urinary tract infection. She reports that she saw her urine from [facility] which read abnormal. The patient has the [facility] urine results/ findings which state "beta hemolytic streptococcus, group B. Penicillin and ampicillin are drug of choice for treatment". Labs were reviewed. Patient has a GFR of 29, BUN 25, creatinine 1.7, glucose 187, hemoglobin 8.5, hematocrit 28.9, RBC 3.3. UA is positive for leuk EST. CT abdomen and pelvis without contrast: 1. No acute intra-abdominal or pelvic abnormality related to right flank pain. 2. Anterior abdominal wall hernia containing mesenteric fat and some loops of small bowel without evidence of bowel obstruction. ED provider request patient be admitted with the diagnosis of UTI, WILFREDO, and anemia. assessed the patient at bedside in 420. The patient appeared comfortable, breathing was even, unlabored, in no distress, and was conversive. I informed her of labs, diagnostics, and plan of care. She verbalized understanding and is in agreement with the plan. 04/12 - patient is seen up in bed appears to be weak, deconditioned. Patient does not appear to be in any acute distress. Patient remains on room air denies chest discomfort, chest pain, or dyspnea with exertion. No acute changes reported overnight. Patient continues with renal dysfunction. We will continue IV fluids for now. Patient is found to have iron-deficiency anemia therefore we will replace with IV iron supplementation for now. We will continue current treatment plan for now. Vital signs are stable. Labs are within normal limits. We will plan to DC home in the next 24-48 hours. 04/13 - patient is seen sitting up at the side of the bed continues to be weak and deconditioned. Patient remains on room air and denies chest discomfort, chest pain, or dyspnea with exertion. No acute changes reported overnight. Today's labs show elevated TSH at 144.05, free T4 0.14 and free T3 of 1.19. Patient reports she has never had thyroid levels checked that she can recall. We will start patient on levothyroxine for now. Patient was evaluated by Nephrology and appreciate their recommendations. We will continue current treatment plan for now. 04/14 - patient is seen sitting up in side of the bed continues to be weak and deconditioned. Patient does report feeling much improved daily. No acute changes reported overnight. Patient continues with renal dysfunction and remained stable. She does have a history of known chronic renal insufficiency. Patient does continue with significant anemia and today's labs show an H&H of 7.1/24.1 From 8.5/28.9 admission. Patient denies hematemesis, hematochezia or melena. We will obtain peripheral smear and request hematology consult. Today patient is seen ambulating on room with no signs of acute distress. Patient reports she feeling back to her baseline. No acute changes reported overnight. Patient labs show an H&H 6.8/22.4. Stool for occult blood was negative. Discussed this case with Dr. Montes De Oca one-to-one in he reports he is very familiar with this patient and recommended to transfuse1 unit of PRBCs and discharge patient home and to follow up in his office next week for further anemia workup. Discussed this with the patient she agreed. Patient received1 unit of PRBCs and tolerated well. Patient has been advised to follow up with PCP in the next 1-2 days. Patient has been advised to continue medications as prescribed. Patient has been advised to follow up with Hematology in 1 week. Patient verbalized understanding. Vital signs are stable. Labs are within normal limits. Medication reconciliation has been completed. New prescriptions have been sent to patient's pharmacy. Education regarding current diagnosis been provided to the patient. All questions have been answered. Patient to be discharged home. 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 PCP notified of patients admission, hospital course and discharge. New Medications: Levothyroxine Sodium (Synthroid 100 Mcg Tab) 100 Mcg Tablet 100 MCG PO DAILY@0630 for 30 Days, #30 TAB Continued Medications: Hydrocodone/Acetaminophen (Hydrocodon-Acetaminophen 5-325) 5 Mg-325 Mg Tablet 1 EACH PO Q6HPRN PRN for PAIN LEVEL 6 TO 10, TAB PHYSICAL EXAM: GENERAL: Alert, awake oriented x 3 HEENT: EOMI, Sclera non icteric, moist mucosa NECK: Supple, no JVD, trachea midline LUNGS: Clear breath sounds bilaterally. No wheezes HEART: Regular rate and rhythm. Normal S1 and S2, without murmurs ABD: Abdomen soft, nontender. Bowel sounds present EXT: No clubbing cyanosis or edema NEURO: Alert and oriented X3, follows commands FOLLOW-UP: Follow-up with PCP in 2-3 days Follow up with Dr. Montes De Oca in 1 week RECOMMENDATIONS: See Discharge Instructions This case was seen and discussed with my supervising physician. More than 30 minutes spent on discharge process, including evaluation of the patient, discussion with nursing staff, medication reconciliation and follow-up appointments ATTESTATION BY PHYSICIAN I have evaluated the patient chart, medical records, and spoke with appropriate staff. I reviewed the documentation, medical decision making, and treatment plan as noted by the mid-level provider above. I agree with the findings and plan of care. Atif Alcantar MD,LALI Pimentel NP Apr 15, 2025 13:02
--- NOTE | 2025-04-15 13:30 | PN ---
FOLLOWUP PROGRESS NOTE SUBJECTIVE: An 84-year-old female with history of diabetes mellitus and hypertension. She initially presented with acute on chronic renal failure. The patient was found to have significant volume depletion. The patient was given IV hydration, renal function had stabilized. The patient with significant anemia and is scheduled for a transfusion and she is being seen as a followup visit for all of the above. REVIEW OF SYSTEMS: CONSTITUTIONAL: She is feeling improved. HEENT: No change in vision. No change in hearing. CARDIOVASCULAR: There is no current chest pain or palpitations. PULMONARY: No shortness of breath. GASTROINTESTINAL: She is tolerating a diet. MUSCULOSKELETAL: Complaints of weakness. PHYSICAL EXAMINATION: VITAL SIGNS: Blood pressure is 153/88, pulse 80s, afebrile. GENERAL: She is a chronically ill elderly female, lying in bed on the medical floor. HEENT: Head is atraumatic. Pupils are equal, roving to light. Oropharynx is without exudate. Nares clear. NECK: There is no JVP. There is no thyromegaly. No mass. CARDIOVASCULAR: Regular. There is no S3 or S4 gallop. LUNGS: Coarse with equal thoracic movement. ABDOMEN: Soft, nondistended, and nontender. EXTREMITIES: There is no clubbing, no cyanosis. NEUROLOGICAL: She is awake. She is alert. LABORATORY DATA: BUN 21, creatinine is 1.7, hemoglobin 6.8, hematocrit 22. IMPRESSION: * Acute on chronic renal failure. * Diabetes mellitus. * Hypertension. * History of anemia. PLAN: The patient's creatinine has stabilized. She has a history of known chronic renal insufficiency. The patient with significant anemia and was given IV iron in the hospital. The patient for a blood transfusion. We will continue to follow closely. The patient's IV fluids can safely be discontinued as she is taking a diet. Once the patient is discharged, she will follow up in the renal clinic. TID: [id number] RECEIPT: [id number]
--- NOTE | 2025-04-15 14:05 | CONS ---
LOCATION: [facility]. REFERRING PHYSICIAN: . REASON FOR CONSULTATION: Anemia. 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 She has had 2 cycles of Keytruda therapy and then resection of the scalp. I have not seen her since December. At that time, her hemoglobin was 11. She did have chronic renal failure, and she was seen by her primary doctor with UTI, and she came in with beta-hemolytic strep, UTI and acute kidney failure. She was admitted for the same. During the course of admission, her hemoglobin drifted down. I was asked to see her for the same. PAST MEDICAL HISTORY: History of chronic kidney disease, anemia of chronic disease, diabetes, scalp cancer status post immunotherapy, TIA, and diabetes. SURGERIES: She has had back surgery and scalp surgery. MEDICATIONS: See intake sheet. ALLERGIES: CEFEPIME, COLCHICINE, GABAPENTIN, DILAUDID, LEVOFLOXACIN, NAPROSYN, AND TETRACYCLINE. FAMILY HISTORY: Negative for renal problems. SOCIAL HISTORY: She lives with her , very, very active. REVIEW OF SYSTEMS: CONSTITUTIONAL: Negative for fever or sweats. HEENT: Negative for blurred vision. CARDIOVASCULAR: Negative for chest pain, palpitations, PND. PULMONARY: Denies cough. CHEST: . GASTROINTESTINAL: Right flank and CVA pain. NEUROLOGIC: Negative for seizure, stroke, and migraine. PHYSICAL EXAMINATION: VITAL SIGNS: Blood pressure 139/62, pulse 56, respirations 20. CHEST: Clear and soft. EXTREMITIES: Show no edema. NEUROLOGIC: Intact. LABORATORY DATA: CBC: hemoglobin 6.8, platelets 208,000. IMPRESSION: * Anemia of renal failure, probably superimposed blood loss, but this can be worked up as an outpatient. * UTI. * Acute renal failure. * Squamous cell carcinoma of the skin appears to be in remission after immunotherapy. * Diabetes. * Hypertension. PLAN: I agree with your plan to transfuse packed cells 1 unit, sent home. I would be happy to follow up on this as an outpatient. She would benefit from erythropoietin. I gave her specific instructions. TID: [id number] RECEIPT: [id number]
--- NOTE | 2025-04-15 14:32 | PN ---
INFECTIOUS DISEASE PROGRESS NOTE Date of Service: Apr 15, 2025 SUBJECTIVE: This is a 84-year-old female patient who was seen at bedside in room 420. Patient is awake, alert and oriented x3. During rounding today. Patient is being transfused 1 unit of PRBC for hemoglobin of 6.8. No dyspnea observe. No fever, temperature is 97.5. Renal function improved, BUN is 21 and creatinine of 1.7. From Infectious Disease standpoint patient can be discharged on amoxicillin 500 x 5 days when ready to discharge. Prescription was written. PHYSICAL EXAM EYES: Anicteric. Pupils equal and reactive. HENT: No oral thrush seen, moist Oral mucosa NECK: Supple, no JVD or thyromegaly. LUNGS: Good air entry. No rales, no rhonchi. CARDIOVASCULAR: S1, S2 regular. No murmur heard. ABDOMEN: Soft, non tender, bowel sounds present, no organomegaly CENTRAL NERVOUS SYSTEM: Awake, alert, oriented x 3. No focal deficits. SKIN: No rashes, no swelling. LYMPHATICS: No peripheral lymphadenopathy MUSCULOSKELETAL: No joint swelling, erythema or tenderness. EXTREMITIES: No cyanosis or clubbing BACK: No deformity, no pressure ulcer. GENITOURINARY: No dysuria or hematuria Vital Sign (Last 12 Hours) 04/15/25 04/15/25 04/15/25 04/15/25 05:05 08:00 09:26 12:00 Temp 98.4 98.2 97.5 Pulse 56 67 63 Resp 17 18 18 B/P (MAP) 159/62 153/88 159/73 Pulse Ox 96 92 92 96 O2 Delivery Room Air Room Air Room Air* Room Air O2 Flow Rate 0 FiO2 21 Intake & Output (last 24hrs) 04/14/25 04/14/25 04/15/25 15:00 23:00 07:00 Intake Total 1152.0 ml Output Total 600 ml 900 ml 600 ml Balance -600 ml -900 ml 552.0 ml LABS: Laboratory: Test 04/15/25 11:12 04/15/25 05:08 04/14/25 19:55 04/14/25 03:59 Range/Units Whole Blood Glucose 111 H 70-110 MG/DL White Blood Count 6.1 4.8-10.8 K/uL Red Blood Count 2.63 L 4.00-5.50 MIL/uL Hemoglobin 6.8 *L 12.0-16.0 g/dL Hematocrit 22.4 L 36-48 % Mean Corpuscular Volume 85.2 79-99 fL Mean Corpuscular Hemoglobin 25.9 L 27.0-33.0 pg Mean Corpuscular Hemoglobin Concent 30.4 L 32.0-36.0 g/dL Red Cell Distribution Width 15.9 H 11.0-15.5 % Platelet Count 208 130-400 K/uL Mean Platelet Volume 10.2 7.5-10.5 fL Immature Granulocyte % (Auto) 0.3 0-1 % Neutrophils (%) (Auto) 53.9 40.0-77.0 % Lymphocytes (%) (Auto) 31.2 21.0-51.0 % Monocytes (%) (Auto) 8.5 3.0-13.0 % Eosinophils (%) (Auto) 5.4 0.0-8.0 % Basophils (%) (Auto) 0.7 0.0-5.0 % Neutrophils # (Auto) 3.3 1.8-7.7 K/uL Lymphocytes # (Auto) 1.9 1.0-4.8 K/uL Monocytes # (Auto) 0.5 0.1-1.0 K/uL Eosinophils # (Auto) 0.33 0.00-0.70 K/uL Basophils # (Auto) 0.04 0.00-0.20 K/uL Absolute Immature Granulocyte (auto 0.02 0-1 K/uL Nucleated Red Blood Cells 0.0 0.0-0.19 % Reticulocyte Count (auto) 1.07424 0.42-2.23 % Immature Reticulocyte Fraction 20.70 H 0.18-0.48 % Sodium Level 140 136-145 mmol/L Potassium Level 4.2 3.5-5.1 mmol/L Chloride Level 107 101-111 mmol/L Carbon Dioxide Level 22 21-32 mmol/L Blood Urea Nitrogen 21 H 7-18 mg/dL Creatinine 1.7 H 0.5-1.0 mg/dL Glomerular Filtration Rate Calc 29 >90 mL/min Random Glucose 87 70-105 mg/dL Total Calcium 8.0 L 8.5-10.1 mg/dL Total Bilirubin 0.4 0.2-1.0 mg/dL Aspartate Amino Transf (AST/SGOT) 15 10-37 U/L Alanine Aminotransferase (ALT/SGPT) 13 12-78 U/L Alkaline Phosphatase 56 50-136 U/L Total Protein 5.4 L 6.0-8.3 g/dL Albumin 2.7 L 3.5-5.0 g/dL Stool Occult Blood NEGATIVE NEGATIVE Magnesium Level 2.00 1.80-2.40 mg/dL ASSESSMENT: Urinary tract infection with Streptococcus agalactiae group B. Acute on chronic renal failure. Anemia almost requiring blood transfusion. PLAN: Continue Zosyn. Patient is being transfused 1 unit of PRBC. Continue GI prophylaxis. Avoid nephrotoxic medications. From Infectious Disease standpoint patient can be discharged on amoxicillin 500 x 5 days when ready to discharge. Prescription was written. This case was reviewed and discussed with my supervising physician and the above assessment and plan was formulated and agreed upon. ATTESTATION BY PHYSICIAN I have seen and examined the patient. I reviewed the documentation, medical de cision making, and treatment plan as noted by the mid-level provider above. I agree with the findings and plan of care. OSCAR JACOB MD, [facility] Apr 15, 2025 14:32
--- NOTE | 2025-04-15 15:13 | NUR ---
20 G INSERTED ON RFA. RESTARTED BLOOD TRANSFUSION WITH NEW RED BLOOD CELL BAG 1 UNIT. PRE TRANSFUSION VS 155/74, 63 BPM, 20 RR, 98.0 TEMP. VS AT 5 MINS 166/73, 57 BPM, 16RR, 97.9 TEMP. VS AT 15 MINS 157/75, 61 BPM, 20RR, 97.9 TEMP. PT IS LAYING COMFORTABLY WITH NO S/S OF DISTRESS. C/O OF PAIN ON R. HIP 04/24. ADMINISTERED MED. SEE EMAR.
[2025-04-15 16:00] VITALS: BP_SYST 137; BP_SYST 141; BP_DIAS 64; BP_DIAS 98; PULSE 68; PULSE 89; RESP 18; TEMP 97.8; TEMP 98.6
--- NOTE | 2025-04-15 18:30 | NUR ---
PT lying in bed w/ eyes open, 0 s/s of alphalytic reaction noted, vital sign stable. IV infusion complete w/o complications. PT denies any discomfort. will continue to monitor.
--- NOTE | 2025-04-15 20:10 | NUR ---
D/C PT'S H AND H RESULTS = 8.9 and 30. DISCHARGE PAPERS AND DISCHARGED INSTRUCTIONS GIVEN TO PT. WRITTEN PRESCRIPTION BY DR JACOB INCLUDED. PT VERBALIZES UNDERSTANDING OF MEDS AND FOLLOW UP WITH DOCTORS. DISCONTINUED PIV WITH CATHETER INTACT. PT CALLED FOR FAMILY TO PICK HER UP. PCP MADE AWARE THAT PT IS FOR D/C ONCE FAMILY GETS IN.
--- NOTE | 2025-04-15 21:00 | NUR ---
D/C PT CALLED AND CLAIMS FAMILY IS ALREADY WAITING BY ER ENTRANCE. DISCHARGED PT IN STABLE CONDITION. PCP WHEELED PT DOWN.
== END 2025-04-15 21:00 | disposition home or self-care (01) | DRG 690 ==
LOC: EDH 11:22 → EDHIP 14:37 → INTOOBSV 14:37 → UNDOADMOB 14:37 → 4CH 15:41 → EDHIP 15:41 → OBSVTOIN 04-12 09:39 → EDHIP 04-12 09:39 → 4CH 04-12 09:39
PROVIDERS: ADMIT Internal Medicine Critical Care Medicine; ATTEND Internal Medicine Critical Care Medicine
PROC: 30233N1 Transfusion of Nonautologous Red Blood Cells into Peripheral Vein, Percutaneous Approach (ICD-10-PCS; principal; 2025-04-15)
DX: N30.00 Acute cystitis without hematuria (principal); N17.9 Acute kidney failure, unspecified; N18.9 Chronic kidney disease, unspecified; E11.22 Type 2 diabetes mellitus with diabetic chronic kidney disease; D63.1 Anemia in chronic kidney disease; I12.9 Hypertensive chronic kidney disease with stage 1 through stage 4 chronic kidney disease, or unspecified chronic kidney disease; D50.9 Iron deficiency anemia, unspecified; E03.9 Hypothyroidism, unspecified; E11.65 Type 2 diabetes mellitus with hyperglycemia; C44.42 Squamous cell carcinoma of skin of scalp and neck; B95.1 Streptococcus, group B, as the cause of diseases classified elsewhere; E86.9 Volume depletion, unspecified; K43.9 Ventral hernia without obstruction or gangrene; Z85.828 Personal history of other malignant neoplasm of skin; Z86.73 Personal history of transient ischemic attack (TIA), and cerebral infarction without residual deficits
CPT/HCPCS: 36415; 36430; 74176; 76770; 80048; 80051; 80053; 81001; 81003; 82270; 82948; 83540; 83550; 83735; 84100; 84439; 84443; 84481; 84550; 85014; 85018; 85025; 85027; 85045; 86850; 86880; 86900; 86901; 86923; 87086; 96374; 96375; 99285; G0378; J0696; J1756; J2270; J2543; J3475; J3490; J7040; P9016